=== PATIENT | male | born 1955 | race Caucasian/White ===

== ENCOUNTER → 2024-07-17 | Outpatient (CLI) | payer BC, SELFPAY ==
[2024-07-17 17:07] LABS: Absolute Lymphocyte Count 1.13 X10^3/uL (0.83-4.51); Absolute Neutrophil Count 2.9 X10^3/uL (2.0-7.7); Basophil# 0.04 X10^3/uL; Basophil% 0.8 % (0-1); Eosinophil# 0.18 X10^3/uL; Eosinophils% 3.6 % (0-5); Hematocrit 43.8 % (40-54); Hemoglobin 14.7 g/dL (13.0-16.5); Lymphocyte # 1.13 X10^3/ul (0.83-4.51); Lymphocyte % 22.6 % (19-41); Mean Corp Hgb Conc 33.6 g/dL (32-36); Mean Corpuscular Hgb 32.5 pg (27.0-32.0); Mean Corpuscular Volume 96.7 fL (80-94); Mean Platelet Vol. 12.9 fl (6.2-12.0); Monocyte# 0.76 X10^3/uL; Monocyte% 15.2 % (0-10); NRBC Flagged by Analyzer 0 % (0-5); Neutrophil # 2.85 X10^3/uL (2.7-7.7); Neutrophil % 56.8 % (47-70); Platelet Count 138 K/mm3 (150-450); RBC Distribution Width CV 12.5 % (11.6-14.6); Red Blood Count 4.53 M/mm3 (4.6-6.2)
[2024-07-17 18:36] LABS: CPK Total, Creatine Kinase 98 U/L (24-195); Hepatitis C Antibody Nonreactive (Nonreactive); PSA,Total - Annual Screen 1.91 ng/mL (0.02-4.00); Troponin T High Sensitivity 11 ng/L (<=22); Vitamin D,25 Hydroxy 29.3 ng/mL (30-100)
[2024-07-17 18:49] LABS: ALB/GLOB Ratio 1.5 RATIO (0.9-2.4); AST(SGOT) 26 U/L (<=37); Alanine Aminotransfer ALT/SGPT 18 U/L (<=46); Alkaline Phosphatase 73 U/L (40-129); Anion Gap 15 (5-15); BUN 23 mg/dL (4-19); BUN/Creat Ratio 17.2 RATIO (10-20); Calcium,Total 8.7 mg/dL (7.6-11.0); Chloride 105 mmol/L (98-108); Creatinine, Serum 1.34 mg/dL (0.70-1.20); EST Glomerular Filtration Rate 58 (>60); Globulin 2.6 g/dL (2.2-4.2); Glucose 98 mg/dL (70-99); Potassium 4.2 mmol/L (3.3-5.1); Protein, Total 6.6 g/dL (5.9-8.4); Sodium Level 140 mmol/L (133-145); Total Bilirubin 0.28 mg/dL (0.00-1.30)
[2024-07-19 04:07] LABS: Myoglobin, Serum 46 ng/mL (28-72)
== END | disposition home or self-care (01) ==
LOC: LAB 15:30
PROVIDERS: PCP Family Medicine Geriatric Medicine; Referring Provider Family Medicine Geriatric Medicine; Visit Provider Family Medicine Geriatric Medicine
DX: E78.5 Hyperlipidemia, unspecified (principal); Z13.89 Encounter for screening for other disorder; R07.9 Chest pain, unspecified; Z12.5 Encounter for screening for malignant neoplasm of prostate; E55.9 Vitamin D deficiency, unspecified
CPT/HCPCS: 36415; 80053; 82306; 82550; 83874; 84153; 84443; 84484; 85025; 86803; G0103

== ENCOUNTER → 2024-07-31 | Outpatient (CLI) | payer BC, SELFPAY ==
--- NOTE | 2024-07-31 08:51 | AAAS_ITS ---
Reason For Study Reason For Study: SCREENING Aorta Measurements Aorta Doppler Measurements Proximal aorta measures2.22 x 2.22cm. in cross-sectional Peak systolic flow velocities within the proximal aorta axis. measure 86.7 cm/sec. Proximal aorta measures2.22cm. in longitudinal axis. Peak systolic flow velocities within the mid aorta measure Mid aorta measures2.4 x 2.4cm. in cross-sectional axis. 49.3 cm/sec. Mid aorta measures2.4cm. in longitudinal axis. Peak systolic flow velocities within the distal aorta Distal aorta measures2.43 x 2.05cm. in cross-sectional axis.measure 48.2 cm/sec. Distal aorta measures2.46cm. in longitudinal axis. Left Iliac Artery Left iliac artery measures 1.05 x 1.05 cm. in the cross-sectional axis. Left iliac artery measures 1.09 cm. in the longitudinal axis. Peak systolic velocity in the left iliac artery measures 69.9 cm/sec. Right Iliac Artery Right iliac artery measures 1.11 x 1.02 cm. in the cross-sectional axis. Right iliac artery measures 1.08 cm. in the longitudinal axis. Peak systolic velocity in the right iliac artery measures 73.6 cm/sec. VL/AAA Screening Interpretation Summary The dimensions of the intra-abdominal aorta are normal, without evidence of ane urysmal dilatation. The iliac arteries are also normal in caliber bilaterally. The intra-abdominal aorta and iliac art eries appear patent, demonstrating normal, pulsatile arterial flow and normal peak systolic velocities. Ordering Physician: Jermaine Orellana Chi Referring Physician: Jermaine Orellana Chi Performed By: Jessica Mullen, LIV, RVT
--- OUTSIDE RECORDS SUMMARY | 2024-07-31 09:25 | XMS RPT_ITS | CCD ---
Author Organization [facility] Care Team Providers Care Rooter Operator Name Role Phone Unavailable Unavailable Unavailable FLORINDA THORNTON Unavailable Unavailable MARLY MORRIS Unavailable Unavaila lester Orellana MD, Dr. Jermaine Vázquez Primary Care Provider [phone] Esteban CARCMAO, Dr. Jermaine Vázquez Attending Provider Esteban CARCAMO, Dr. Jermaine Vázquez Referring Provider Esteban, Jermaine Chi Primary Care Unavailable Esteban, Jermaine Chi Referring Unavailable Esteban, Jermaine Chi Attending Unavailable Esteban, Jermaine Chi Attending Unavailable Esteban, Jermaine Chi Primary Care Unavailable Esteban, Jermaine Chi Referring Unavailable Esteban, Jermaine Chi Attending Unavailable Esteban, Jermaine Chi Primary Care Unavailable Esteban, Jermaine Chi Referring Unavailable Problems Problem Classification Problem Date Documented Da te Episodic/Chronic Disorders of lipid metabolism (1 source) Hyperlipidemia, unspecified; Translations: [Hyperlipidemia, unspecified] Onset: 07-24-2024 Chronic Nonspecific chest pain (1 source) Chest pain, unspecified; Translations: [Chest pain, unspecified] Onset: 07-18-2024 Episodic Other lower respiratory disease (1 source) Shortness of breath; Translations: [Shortness of breath] Onset: 07-18-2024 Episodic Unclassified (1 source) Abdominal aortic aneurysm, without rupture, unspecified; Translations: [Abdominal aortic aneurysm, without rupture, unspecified] Onset: 07-22-2024 Results Test Name Value Interpretation Reference Range Facil ity Myoglobin, Serumon 5 Myoglobin, Ser 46 ng/mL Normal 28-72 [facility] Comment on above: Result Comment: Perf ormed at: CB - [facility] [address] [id number] Pathology Technologist: Dave Jain PhD, Phone: [phone] Performed By: #### L 501.3620, L500.4050, L506.1001, L3600.5100, L3890.6301, L501.9520, L501.9910, L100.0100, L501.4021 #### [facility] [address] [place], [address] Absolute lymphocyte countOrd ered By: Jermaine Orellana on 07-17-2024 Lymphocytes Auto (Unsp spec) [#/Vol] 1.13 10*3/uL 0.83-4.51 [facility] Absolute neutrophil countOrd ered By: Jermaine Esteban on 07-17-2024 Neutrophils (Bld) [#/Vol] 2.9 10*3/uL 2.0-7.7 [facility] Anion gap in Serum or Plasma Ordered By: Jermaine Orellana on 07-17-2024 Anion gap [Moles/Vol] 15 mmol/L 5-[address] [facility] Automated lymphocyte count a s percentage of total leukocytesOrdered By: Jermaine Orellana on 07-17-2024 Lymphocytes/100 WBC Auto (Unsp spec) 22.6 % 19-41 [facility] BUN/creatinine [facility]Ordered By: [facility]24 Urea nitrogen/Creatinine [Mass ratio] 17.2 mg/mg 10-20 [facility] Basophil percentageOrdered B y: Jermaine Orellana on 07-17-2024 Basophils/100 WBC (Bld) 0.8 % 0-1 [facility] Bilirubin, totalOrdered By: Jermaine Orellana on 07-17-2024 Bilirubin [Mass/Vol] 0.28 mg/dL 0.00-1.30 [facility] CBC W/Diff, Automatedon Absolute Lymph 1.13 X10 3/uL Normal 0.83-4.51 [facility] Comment on above: Performed By: #### L 501.3620, L500.4050, L506.1001, L3600.5100, L3890.6301, L501.9520, L501.9910, L100.0100, L501.4021 #### [facility] [address] [place], [address] Absolute Neut 2.9 X10 3/uL Normal 2.0-7.7 [facility] Comment on above: Performed By: #### L 501.3620, L500.4050, L506.1001, L3600.5100, L3890.6301, L501.9520, L501.9910, L100.0100, L501.4021 #### [facility] [address] [place], [address] Basophils/100 WBC (Bld) 0.8 % Normal 0-1 [facility] Comment on above: Performed By: #### L 501.3620, L500.4050, L506.1001, L3600.5100, L3890.6301, L501.9520, L501.9910, L100.0100, L501.4021 #### [facility] [address] [place], [address] Eosinophils/100 WBC (Bld) 3.6 % Normal 0-5 [facility] Comment on above: Performed By: #### L 501.3620, L500.4050, L506.1001, L3600.5100, L3890.6301, L501.9520, L501.9910, L100.0100, L501.4021 #### [facility] [address] [place], [address] Erythrocyte distribution width (RBC) [Ratio] 12.5 % Normal 11.6-14.6 [facility] Comment on above: Performed By: #### L 501.3620, L500.4050, L506.1001, L3600.5100, L3890.6301, L501.9520, L501.9910, L100.0100, L501.4021 #### [facility] [address] [place], [address] Hematocrit (Bld) [Volume fraction] 43.8 % Normal 40-54 [facility] Comment on above: Performed By: #### L 501.3620, L500.4050, L506.1001, L3600.5100, L3890.6301, L501.9520, L501.9910, L100.0100, L501.4021 #### [facility] [address] [place], [address] Hemoglobin (Bld) [Mass/Vol] 14.7 g/dL Normal 13.0-16.5 [facility] Comment on above: Performed By: #### L 501.3620, L500.4050, L506.1001, L3600.5100, L3890.6301, L501.9520, L501.9910, L100.0100, L501.4021 #### [facility] [address] [place], [address] IG% 1.000 High 0.0-0.9 [facility] Comment on above: Result Comment: IG% - Immature Granulocytes (promyelocytes, myelocytes and metamyelocytes) > 1% indicates that a LEFT SHIFT is Present. Performed By: #### L 501.3620, L500.4050, L506.1001, L3600.5100, L3890.6301, L501.9520, L501.9910, L100.0100, L501.4021 #### [facility] [address] [place], [address] Lymphocytes/100 WBC (Bld) 22.6 % Normal 19-41 [facility] Comment on above: Performed By: #### L 501.3620, L500.4050, L506.1001, L3600.5100, L3890.6301, L501.9520, L501.9910, L100.0100, L501.4021 #### [facility] [address] [place], [address] MCH (RBC) [Entitic mass] 32.5 pg High 27.0-32.0 [facility] Comment on above: Performed By: #### L 501.3620, L500.4050, L506.1001, L3600.5100, L3890.6301, L501.9520, L501.9910, L100.0100, L501.4021 #### [facility] [address] [place], [address] MCHC (RBC) [Mass/Vol] 33.6 g/dL Normal 32-[address] [facility] Comment on above: Performed By: #### L 501.3620, L500.4050, L506.1001, L3600.5100, L3890.6301, L501.9520, L501.9910, L100.0100, L501.4021 #### [facility] [address] [place], [address] MCV (RBC) [Entitic vol] 96.7 fL High 80-94 [facility] Comment on above: Performed By: #### L 501.3620, L500.4050, L506.1001, L3600.5100, L3890.6301, L501.9520, L501.9910, L100.0100, L501.4021 #### [facility] [address] [place], [address] Monocytes/100 WBC (Bld) 15.2 % High 0-10 [facility] Comment on above: Performed By: #### L 501.3620, L500.4050, L506.1001, L3600.5100, L3890.6301, L501.9520, L501.9910, L100.0100, L501.4021 #### [facility] [address] [place], [address] Neutrophils/100 WBC (Bld) 56.8 % Normal 47-70 [facility] Comment on above: Performed By: #### L 501.3620, L500.4050, L506.1001, L3600.5100, L3890.6301, L501.9520, L501.9910, L100.0100, L501.4021 #### [facility] [address] [place], [address] Nucleated RBC (Bld) [#/Vol] 0 10*3/uL Normal 0-5 [facility] Comment on above: Performed By: #### L 501.3620, L500.4050, L506.1001, L3600.5100, L3890.6301, L501.9520, L501.9910, L100.0100, L501.4021 #### [facility] [address] [facility] [place], [address] Platelet mean volume (Bld) [Entitic vol] 12.9 fL High 6.2-12.0 [facility] Comment on above: Performed By: #### L 501.3620, L500.4050, L506.1001, L3600.5100, L3890.6301, L501.9520, L501.9910, L100.0100, L501.4021 #### [facility] [address] [facility] [place], [address] Platelets (Bld) [#/Vol] 138 10*3/uL Low 150-450 [facility] Comment on above: Performed By: #### L 501.3620, L500.4050, L506.1001, L3600.5100, L3890.6301, L501.9520, L501.9910, L100.0100, L501.4021 #### [facility] [address] [place], [address] RBC (Bld) [#/Vol] 4.53 10*6/uL Low 4.6-6.2 [facility] Comment on above: Performed By: #### L 501.3620, L500.4050, L506.1001, L3600.5100, L3890.6301, L501.9520, L501.9910, L100.0100, L501.4021 #### [facility] [address] [place], [address] RDW SD 45.0 fl High 35.1-43.9 [facility] Comment on above: Performed By: #### L 501.3620, L500.4050, L506.1001, L3600.5100, L3890.6301, L501.9520, L501.9910, L100.0100, L501.4021 #### [facility] [address] [facility] [place], [place], [id number] WBC (Bld) [#/Vol] 5.0 10*3/uL Normal 4.4-11.0 [facility] Comment on above: Performed By: #### L 501.3620, L500.4050, L506.1001, L3600.5100, L3890.6301, L501.9520, L501.9910, L100.0100, L501.4021 #### [facility] [address] [facility] [place], [place], [id number] CPK Total, Creatine Kinaseon 07-17-2024 CPK TOTAL 98 U/L Normal 24-195 [facility] Comment on above: Performed By: #### L 501.3620, L500.4050, L506.1001, L3600.5100, L3890.6301, L501.9520, L501.9910, L100.0100, L501.4021 #### [facility] [address] [facility] [place], [place], [id number] Carbon dioxide, total [Moles /volume] in Central venous bloodOrdered By: Jermaine Orellana on 07-17-2024 CO2 [Moles/Vol] 20.0 mmol/L Low 21.0-32.0 [facility] Chloride assayOrdered By: Daniel Orellana on 07-17-2024 Chloride [Moles/Vol] 105 mmol/L 98-108 [facility] Comprehensive Metabolic Prof ilon 07-17-2024 Albumin [Mass/Vol] 4.0 g/dL Normal 3.4-4.8 [facility] Comment on above: Performed By: #### L 501.3620, L500.4050, L506.1001, L3600.5100, L3890.6301, L501.9520, L501.9910, L100.0100, L501.4021 #### [facility] [address] [place], [address] Albumin/Globulin [Mass ratio] 1.5 {ratio} Normal 0.9-2.4 [facility] Comment on above: Performed By: #### L 501.3620, L500.4050, L506.1001, L3600.5100, L3890.6301, L501.9520, L501.9910, L100.0100, L501.4021 #### [facility] [address] [place], [address] ALK PHOS 73 U/L Normal 40-129 [facility] Comment on above: Performed By: #### L 501.3620, L500.4050, L506.1001, L3600.5100, L3890.6301, L501.9520, L501.9910, L100.0100, L501.4021 #### [facility] [address] [place], [address] ALT [Catalytic activity/Vol] 18 U/L Normal <=46 [facility] Comment on above: Performed By: #### L 501.3620, L500.4050, L506.1001, L3600.5100, L3890.6301, L501.9520, L501.9910, L100.0100, L501.4021 #### [facility] [address] [place], [address] AST [Catalytic activity/Vol] 26 U/L Normal <=37 [facility] Comment on above: Result Comment: Hemo lysis present, Results??could be affected. ?? Performed By: #### L 501.3620, L500.4050, L506.1001, L3600.5100, L3890.6301, L501.9520, L501.9910, L100.0100, L501.4021 #### [facility] [address] [place], [address] Bilirubin [Mass/Vol] 0.28 mg/dL Normal 0.00-1.30 [facility] Comment on above: Performed By: #### L 501.3620, L500.4050, L506.1001, L3600.5100, L3890.6301, L501.9520, L501.9910, L100.0100, L501.4021 #### [facility] [address] [place], [address] BUN/CRE 17.2 RATIO Normal 10-20 [facility] Comment on above: Performed By: #### L 501.3620, L500.4050, L506.1001, L3600.5100, L3890.6301, L501.9520, L501.9910, L100.0100, L501.4021 #### [facility] [address] [place], [address] Calcium [Mass/Vol] 8.7 mg/dL Normal 7.6-11.0 [facility] Comment on above: Performed By: #### L 501.3620, L500.4050, L506.1001, L3600.5100, L3890.6301, L501.9520, L501.9910, L100.0100, L501.4021 #### [facility] [address] [place], [address] Chloride [Moles/Vol] 105 mmol/L Normal 98-108 [facility] Comment on above: Performed By: #### L 501.3620, L500.4050, L506.1001, L3600.5100, L3890.6301, L501.9520, L501.9910, L100.0100, L501.4021 #### [facility] [address] [place], [place], [phone] (207) CO2 [Moles/Vol] 20.0 mmol/L Low 21.0-32.0 [facility] Comment on above: Performed By: #### L 501.3620, L500.4050, L506.1001, L3600.5100, L3890.6301, L501.9520, L501.9910, L100.0100, L501.4021 #### [facility] [address] [place], [place], [phone] ([address]) Creatinine [Mass/Vol] 1.34 mg/dL High 0.70-1.[address] [facility] Comment on above: Performed By: #### L 501.3620, L500.4050, L506.1001, L3600.5100, L3890.6301, L501.9520, L501.9910, L100.0100, L501.4021 #### [facility] [address] [place], [place], [id number] GAP 15 Normal 5-15 [facility] Comment on above: Performed By: #### L 501.3620, L500.4050, L506.1001, L3600.5100, L3890.6301, L501.9520, L501.9910, L100.0100, L501.4021 #### [facility] [address] [place], [place], [phone] (827) GFR/1.73 sq M.predicted among non-blacks MDRD (S/P/Bld) [Vol rate/Area] 58 mL/min/{1.73_m2} Low >60 [facility] Comment on above: Result Comment: mL/m in/1.73m2 CKD-EPI Creatinine Equation (2020) Performed By: #### L 501.3620, L500.4050, L506.1001, L3600.5100, L3890.6301, L501.9520, L501.9910, L100.0100, L501.4021 #### [facility] [address] [place], [address] Globulin (S) [Mass/Vol] 2.6 g/dL Normal 2.2-4.2 [facility] Comment on above: Performed By: #### L 501.3620, L500.4050, L506.1001, L3600.5100, L3890.6301, L501.9520, L501.9910, L100.0100, L501.4021 #### [facility] [address] [place], [address] Glucose [Mass/Vol] 98 mg/dL Normal 70-99 [facility] Comment on above: Performed By: #### L 501.3620, L500.4050, L506.1001, L3600.5100, L3890.6301, L501.9520, L501.9910, L100.0100, L501.4021 #### [facility] [address] [place], [address] Potassium [Moles/Vol] 4.2 mmol/L Normal 3.3-5.[address] [facility] Comment on above: Result Comment: Hemo lysis present, Results??could be affected. ?? Performed By: #### L 501.3620, L500.4050, L506.1001, L3600.5100, L3890.6301, L501.9520, L501.9910, L100.0100, L501.4021 #### [facility] [address] [place], [address] Sodium [Moles/Vol] 140 mmol/L Normal 133-145 [facility] Comment on above: Performed By: #### L 501.3620, L500.4050, L506.1001, L3600.5100, L3890.6301, L501.9520, L501.9910, L100.0100, L501.4021 #### [facility] [address] [place], [address] T PROT 6.6 g/dL Normal 5.9-8.4 [facility] Comment on above: Performed By: #### L 501.3620, L500.4050, L506.1001, L3600.5100, L3890.6301, L501.9520, L501.9910, L100.0100, L501.4021 #### [facility] [address] [place], [place], [phone] Urea nitrogen [Mass/Vol] 23 mg/dL High 4-19 [facility] Comment on above: Performed By: #### L 501.3620, L500.4050, L506.1001, L3600.5100, L3890.6301, L501.9520, L501.9910, L100.0100, L501.4021 #### [facility] [address] [facility] [place], [place], [id number] Eosinophil percentageOrdered By: Jermaine Orellana on 07-17-2024 Eosinophils/100 WBC (Bld) 3.6 % 0-5 [facility] Erythrocyte distribution wid th ratioOrdered By: [facility] on 07-17-2024 Erythrocyte distribution width (RBC) [Ratio] 12.5 % 11.6-14.6 [facility] Erythrocyte distribution wid th standard deviationOrdered By: Jermaine Orellana on 07-17-2024 Erythrocyte distribution width (RBC) [Ratio] 45.0 fl High 35.1-43.9 [facility] Glomerular filtration rate ( GFR) estimation/1.73 sq m using serum, plasma, or whole bOrdered By: Jermaine Orellana on 07-17-2024 GFR/1.73 sq M.predicted among non-blacks MDRD (S/P/Bld) [Vol rate/Area] 58 mL/min/{1.73_m2} Low >60 [facility] Comment on above: mL/min/1.73m2 CKD-EP I Creatinine Equation (2020) Hematocrit Auto (Bld) [Volum e fraction]Ordered By: Jermaine Orellana on 07-17-2024 Hematocrit (Bld) [Volume fraction] 43.8 % 40-54 [facility] Hemoglobin measurementOrdere d By: Jermaine Orellana on 07-17-2024 Hemoglobin (Bld) [Mass/Vol] 14.7 g/dL 13.0-16.5 [facility] Hepatitis C Antibodyon 07-17 Hepatitis C Ab Non-Reactive Normal Nonreactive [facility] Comment on above: Result Comment: Reac tive: Presumptive evidence of antibodies to HCV. Follow CDC recommendations for supplemental testing. Non-Reactive: Antibodies to HCV were not detected; does not exclude the possibility of exposure to HCV Reactive Results are presumptive evidence of antibodies to HCV. Follow CDC recommendations for supplemental testing. Order confirmation testing: HCV Quant by PCR testing - HCVPCR lc#[id number] Non Reactive: < 0.8 Equivocal: >/= 0.8 to < 1.0 Reactive: >/= 1.0 The CDC requires that a reactive/equivocal HCV antibody result be sent out for confirmation. HCV Quant by PCR testing. Performed By: #### L 501.3620, L500.4050, L506.1001, L3600.5100, L3890.6301, L501.9520, L501.9910, L100.0100, L501.4021 #### [facility] [address] [place], [address] Immature granulocytes/100 WB C Auto (Bld)Ordered By: Jermaine Orellana on 07-17-2024 Immature granulocytes/100 WBC (Bld) 1.000 % High 0.0-0.9 [facility] Comment on above: IG% - Immature Granu locytes (promyelocytes, myelocytes and metamyelocytes) > 1% indicates that a LEFT SHIFT is Present. L501.4021on 07-17-2024 Trop T High Sen 11 ng/L Normal <=22 [facility] Comment on above: Performed By: #### L 501.3620, L500.4050, L506.1001, L3600.5100, L3890.6301, L501.9520, L501.9910, L100.0100, L501.4021 #### [facility] [address] [place], [address] Laboratory - Chemistry and C hemistry - challengeOrdered By: Jermaine Orellana on 07-17-2024 AST [Catalytic activity/Vol] 26 U/L <38 [facility] Comment on above: Hemolysis present, R esults could be affected. MCV (mean corpuscular volume ) determinationOrdered By: Jermaine Orellana on 07-17-2024 MCV (RBC) [Entitic vol] 96.7 fL High 80-94 [facility] Mean corpuscular hemoglobin (MCH) determinationOrdered By: Jermaine Orellana on 07-17-2024 MCH (RBC) [Entitic mass] 32.5 pg High 27.0-32.0 [facility] Mean corpuscular hemoglobin concentration (MCHC) determinationOrdered By: Jermaine Orellana 07-17-2024 MCHC (RBC) [Mass/Vol] 33.6 g/dL 32-[address] [facility] Mean platelet volume determi nationOrdered By: Jermaine Orellana on 07-17-2024 Platelet mean volume (Bld) [Entitic vol] 12.9 fL High 6.2-12.0 [facility] Monocyte percentageOrdered B y: Jermaine Orellana on 07-17-2024 Monocytes/100 WBC (Bld) 15.2 % High 0-10 [facility] Neutrophil percentageOrdered By: Jermaine Orellana on 07-17-2024 Neutrophils/100 WBC (Bld) 56.8 % 47-70 [facility] Nucleated red blood cell per centageOrdered By: Jermaine Orellana on 07-17-2024 Nucleated RBC/100 WBC (Bld) [Ratio] 0 % 0-5 [facility] PSA,Total - Annual Screenon 07-17-2024 PSA,TOT SCREEN 1.91 ng/mL Normal 0.02-4.00 [facility] Comment on above: Result Comment: This test was performed using the [employer] tPSA method. Measured values of a patient??sample can vary depending on the testing procedure used. PSA values determined on patient samples by different testing procedures cannot be used interchangeably. If there is a change in PSA assays while monitoring therapy, sequential testing should be performed to confirm baseline values. Performed By: #### L 501.3620, L500.4050, L506.1001, L3600.5100, L3890.6301, L501.9520, L501.9910, L100.0100, L501.4021 #### [facility] [address] [place], [place], [phone] Platelet countOrdered By: Daniel Orellana on 07-17-2024 Platelets (Bld) [#/Vol] 138 10*3/uL Low 150-450 [facility] Potassium measurement (mass/ volume)Ordered By: Jermaine Orellana on 07-17-2024 Potassium (Unsp spec) [Mass/Vol] 4.2 mmol/L 3.3-5.1 [facility] Comment on above: Hemolysis present, R esults could be affected. RBC Auto (Bld) [#/Vol]Ordere d By: Jermaine Orellana on 07-17-2024 RBC (Bld) [#/Vol] 4.53 10*6/uL Low 4.6-6.2 [facility] Serum creatinine measurement (mass/volume)Ordered By: Jermaine Orellana on 07-17-2024 Creatinine [Mass/Vol] 1.34 mg/dL High 0.70-1.[address] [facility] Serum globulin measurementOr dered By: Jermaine Orellana on 07-17-2024 Globulin (S) [Mass/Vol] 2.6 g/dL 2.2-4.2 [facility] Serum glucose measurement (m ass/volume)Ordered By: Jermaine Orellana on 07-17-2024 Glucose [Mass/Vol] 98 mg/dL 70-99 [facility] Serum myoglobin measurementO rdered By: Jermaine Orellana on 07-17-2024 Myoglobin [Mass/Vol] 46 ng/mL 28-72 [facility] Comment on above: Performed at: [address] [id number] Director: Dave Jain PhD, Phone: [phone] Serum or plasma alanine cueto otransferase (ALT) measurementOrdered By: Jermaine Orellana on 07-17-2024 ALT [Catalytic activity/Vol] 18 U/L <47 [facility] Serum or plasma albumin sekou urement (mass/volume)Ordered By: Jermaine Orellana on 07-17-2024 Albumin [Mass/Vol] 4.0 g/dL 3.4-4.8 [facility] Serum or plasma albumin/glob ulin mass ratioOrdered By: Jermaine Orellana on 07-17-2024 Albumin/Globulin [Mass ratio] 1.5 {ratio} 0.9-2.4 [facility] Serum or plasma alkaline dave sphatase measurementOrdered By: Jermaine Orellana on 07-17-2024 ALP [Catalytic activity/Vol] 73 U/L 40-129 [facility] Serum or plasma calcium sekou urement (mass/volume)Ordered By: Jermaine Orellana on 07-17-2024 Calcium [Mass/Vol] 8.7 mg/dL 7.6-11.0 [facility] Serum or plasma creatine kin ase activityOrdered By: Jermaine Orellana on 07-17-2024 CK [Catalytic activity/Vol] 98 U/L 24-195 [facility] Serum or plasma urea nitroge n measurement (mass/volume)Ordered By: Jermaine Orellana on 07-17-2024 Urea nitrogen [Mass/Vol] 23 mg/dL High 4-19 [facility] Sodium levelOrdered By: Jermaine Orellana on 07-17-2024 Sodium [Moles/Vol] 140 mmol/L 133-145 [facility] TSH DL <= 0.005 mIU/L QnOrde red By: Jermaine Orellana on 07-17-2024 TSH Qn 2.750 uIU/mL 0.300-4.200 [facility] Thyroid Stim Hormone (TSH)on 07-17-2024 TSH 2.750 uIU/mL Normal 0.300-4.200 [facility] Comment on above: Performed By: #### L 501.3620, L500.4050, L506.1001, L3600.5100, L3890.6301, L501.9520, L501.9910, L100.0100, L501.4021 #### [facility] [address] [place], [place], [id number] Total proteinOrdered By: Jermaine Orellana on 07-17-2024 Protein [Mass/Vol] 6.6 g/dL 5.9-8.4 [facility] Troponin T.cardiac [Mass/vol ume] in Serum or Plasma by High sensitivity methodOrdered By: Jermaine Orellana on 07-17-2024 Troponin T.cardiac High sensitivity method [Mass/Vol] 11 ng/L <22 [facility] Vitamin D,25 Hydroxyon 07-17 Vitamin D 25-OH 29.3 ng/mL Low 30-100 [facility] Comment on above: Result Comment: [place] min D Status Deficiency: <20 ng/mL (50nmol/L) Insufficiency: 20-30 ng/mL (50-75 nmol/L) Sufficiency: 30-100 ng/mL (75-250 nmol/L) Toxicity: >100 ng/mL (>250 nmol/L) Performed By: #### L 501.3620, L500.4050, L506.1001, L3600.5100, L3890.6301, L501.9520, L501.9910, L100.0100, L501.4021 #### [facility] [address] [place], [place], [address] White blood cell (WBC) count Ordered By: Jermaine Orellana on 07-17-2024 WBC (Bld) [#/Vol] 5.0 10*3/uL 4.4-11.0 [facility] Encounters Encounter Date Encounter Type Care Provider Facility Start: 08-22-2024 ambulatory Jermaine [facility] Facility:[facility] Start: 07-31-2024 ambulatory [facility] Facility:[facility] Start: 07-17-2024 End: 07-17-[address] Jermaine Orellana MD Work Phone: [facility] Work Phone: Start: 07-17-2024 End: 07-17-[address] Jermaine Orellana MD -Laboratory Work Phone: Start: 07-17-2024 End: 07-17-2024 ambulatory [facility] Facility:[facility] Start: 02-05-2018 Patient encounter procedure MARLY MORRIS [facility] Start: 01-31-2018 End: 01-31-2018 Patient encounter procedure Florinda Thornton [facility] Physicians Comment on above: medical records Procedures Date Procedure Procedure Detail Performing Clinician Start: 07-17-[address]24 [address] C antibody measurement Dr. Jermaine Orellana MD Work Phone: Comment on above: Reactive: Presumptiv e evidence of antibodies to HCV. Follow CDC recommendations for supplemental testing.Non-Reactive: Antibodies to HCV were not detected; does not exclude the possibility of exposure to HCVReactive Results are presumptive evidence of antibodies to HCV. Follow CDC recommendations for supplemental testing.Order confirmation testing: HCV Quant by PCR testing - HCVPCR lc#[id number] Non Reactive: < 0.8 Equivocal: >/= 0.8 to < 1.0 Reactive: >/= 1.0The CDC requires that a reactive/equivocal HCV antibody result be sent out for confirmation. HCV Quant by PCR testing. Start: 07-17-2024 Prostate specific an tigen measurement Dr. Jermaine Orellana MD Work Phone: Comment on above: This test was perfor med using the [facility] tPSA method. Measured values of a patient sample can vary depending on the testing procedure used. PSA values determined on patient samples by different testing procedures cannot be used interchangeably. If there is a change in PSA assays while monitoring therapy, sequential testing should be performed to confirm baseline values. Start: 07-17-2024 Vitamin D, 25-hydrox y measurement Dr. Jermaine Orellana MD Work Phone: Comment on above: Vitamin D StatusDefi ciency: <20 ng/mL (50nmol/L)Insufficiency: 20-30 ng/mL (50-75 nmol/L)Sufficiency: 30-100 ng/mL (75-250 nmol/L)Toxicity: >100 ng/mL (>250 nmol/L) Payers Date Payer Category Payer Self-pay 2024 Unknown [id number] Unknown [facility] [id number] Unknown [id number] Unknown [id number] Unknown [id number] Social History Date Type Detail Facility Tobacco smoking stat [facility] Unknown if [facility] Work Phone: Start: 1955 Sex Assigned At Male [facility] Evaluation note Note Date & Type Note Facility Evaluation note No assessment information availa ble [facility] Work Phone: Reason for referral (narrative) Note Date & Type Note Facility Reason for referral (narrative) No reason for referral information available [facility] Work Phone: History of Present Illness * Florinda Thornton RN - 01/31/2018 11:21 AM EST Faxed and scan records from [facility] on 01/30 to [facility] in this encounter Summary Purpose Family History No Family History Records FoundNo Family History Records Found Advance Directives No Advanced Directives Records FoundNo Advanced Directives Records Found Additional Source Comments Reason for Visit (unrecogniz ed section and content) Reason Comments medical records (unrecognized sect ion and content) No Status Records FoundNo Status Records Found INFORMATION SOURCE (unrecogn ized section and content) DATE CREATED AUTHOR 02/07/2018 [facility] DATE CREATED AUTHOR AUTHOR'S ORGANIZ ATION 07/27/2024 [facility] Care Teams (unrecognized sec tion and content) Team Status: Active Member Role Status Dates Dr. Jermaine Orellana MD Primary Care Provider Active Team Status: Inactive Member Role Status Dates Dr. Jermaine Orellana MD Primary Care Provider Active Start: July 17, 2024 End: July 17, 2024 Dr. Jermaine Orellana MD Attending Provider Active Start: July 17, 2024 End: July 17, 2024 Dr. Jermaine Orellana MD Referring Provider Active Start: July 17, 2024 End: July 17, 2024 Goals (unrecognized section and content) Goals may be documented in a n alternate section FOR RECORDS PERTAINING TO PATIENTS WHO ARE OR HAVE BEEN ENROLLED IN A CHEMICAL DEPENDENCY/SUBSTANCEABUSE PROGRAM, SOME INFORMATION MAY BE OMITTED. This clinical summary was aggregated from multiple sources. Caution should be exercised in using it in the provision of clinical care. This summary normalizes information from multiple sources, and as a consequence, information in this document may materially change the coding, format and clinical context of patient data. In addition, data may be omitted in some cases. CLINICAL DECISIONS SHOULD BE BASED ON THE PRIMARY CLINICAL RECORDS. [employer] provides no warranty or guarantee of the accuracy or completeness of information in this document.
== END | disposition home or self-care (01) ==
LOC: CVS 08:50
PROVIDERS: PCP Family Medicine Geriatric Medicine; Referring Provider Family Medicine Geriatric Medicine; Visit Provider Family Medicine Geriatric Medicine
DX: I71.40 Abdominal aortic aneurysm, without rupture, unspecified (principal); R06.02 Shortness of breath; R07.9 Chest pain, unspecified
CPT/HCPCS: 76706

== ENCOUNTER → 2024-08-22 | Outpatient (CLI) | payer BC, SELFPAY ==
--- NOTE | 2024-08-22 06:18 | ECHOD_ITS ---
Reason For Study Reason For Study: SOB, Chest Pain Procedure This was a 2D Doppler, Color Flow transthoracic echocardiogram. Myocardial strain analysis was performed in this exam to aid in the assessment of cardiac function. Exam performed in department. Left Ventricle Normal LV size. Moderate concentric left ventricular hypertrophy. The global longitudinal strain = -14.5% (abnormal). Stage 1 diastolic dysfunction. No regional wall motion abnormalities noted. Right Ventricle Normal RV size. Normal systolic function. Atria Normal left atrium. Normal right atrium. Mitral Valve Normal mitral valve. Tricuspid Valve Normal tricuspid valve. Mild tricuspid valve insufficiency. Aortic Valve Trisinus/trileaflet aortic valve. Pulmonic Valve Normal pulmonic valve. Great Vessels Mildly dilated aortic root. The pulmonary artery is normal size. Normal inferior vena cava. Pericardium/Pleural No pericardial effusion. MMode/2D Measurements & Calculations LVIDd: 5.3 cm IVSd: 1.4 cm Ao root diam: 4.0 cm LVIDs: 3.8 cm LVPWd: 1.3 cm RVDd: 3.4 cm FS: 27.6 % LAV(MOD-bp): 49.0 ml LVAd ap4: 31.4 cm2 SV(MOD-sp4): 55.7 ml LAV(MOD-bp) Indexed: 23.7 ml/m2 LVLd ap4: 8.0 cm SI(MOD-sp4): 27.0 ml/m2 LAV(MOD-sp2): 46.7 ml EDV(MOD-sp4): 100.8 ml LAV(MOD-sp4): 39.4 ml EDV(sp4-el): 104.8 ml LVAs ap4: 19.5 cm2 LVLs ap4: 7.0 cm ESV(MOD-sp4): 45.1 ml ESV(sp4-el): 46.0 ml EF(MOD-sp4): 55.2 % EF(sp4-el): 56.1 % SV(sp4-el): 58.8 ml Ao sinus diam: 4.[address] Junction: 3.3 cm LA dimension(2D): 3.9 cm LA A4 area: 14.7 cm2 RA A4 area: 13.7 cm2 Time Measurements MV dec time: 0.22 sec Doppler Measurements & Calculations MV E max lonny: 47.0 cm/sec Lat Peak E' Lonny: 5.5 cm/sec Med Peak E' Lonny: 5.2 cm/sec MV A max lonny: 57.7 cm/sec E/E' lat: 8.6 E/E' med: 9.1 MV E/A: 0.82 MV V2 max: 72.4 cm/sec MV P1/2t max lonny: 47.3 cm/sec Ao V2 max: 114.7 cm/sec MV max P.1 mmHg MV P1/2t: 79.8 msec Ao max P.3 mmHg MV V2 mean: 35.2 cm/sec MV dec slope: 173.5 cm/sec2 Ao V2 mean: 80.5 cm/sec MV mean P.59 mmHg Ao mean P.0 mmHg MV V2 VTI: 18.9 cm MVA(P1/2t): 2.8 cm2 Ao V2 VTI: 24.3 cm AV (velocity ratio): 0.74 LV V1 max: 77.1 cm/sec PA V2 max: 84.3 cm/sec TR max lonny: 222.3 cm/sec LV V1 max P.4 mmHg TR max P.8 mmHg LV V1 mean P.3 mmHg LV V1 mean: 52.1 cm/sec LV V1 VTI: 18.1 cm ECHO/Echo Complete Interpretation Summary Normal LV size. Moderate concentric left ventricular hypertrophy. The global longitudinal strain = -14.5% (abnormal). Stage 1 diastolic dysfunction. Mildly dilated aortic root. Ordering Physician: Jermaine Orellana Chi Referring Physician: Jermaine Orellana Chi Performed By: Collins Quiñones RCS
--- OUTSIDE RECORDS SUMMARY | 2024-08-22 06:20 | XMS RPT_ITS | CCD ---
Author Organization [facility] Care Team Providers Care Record Librarian Name Role Phone Unavailable Unavailable Unavailable FLORINDA THORNTON Unavailable Unavailable MARLY MORRIS Unavailable Unavaila lester Orellana MD, Dr. Jermaine Vázquez Primary Care Provider Esteban CARCAMO, Dr. Jermaine Vázquez Attending Provider Esteban CARCAMO, Dr. Jermaine Vázquez Referring Provider [phone] Esteban, Jermaine Chi Primary Care Unavailable Esteban, [...] pain, unspecified; Translations: [Chest pain, unspecified] Onset: 08-13-2024 Episodic Other lower respiratory disease (1 source) Shortness of breath; Translations: [Shortness of breath] Onset: 08-13-2024 Episodic Unclassified (1 source) Abdominal aortic aneurysm, without rupture, unspecified; Translations: [Abdominal aortic aneurysm, without rupture, unspecified] Onset: 08-06-2024 Results Test Name Value Interpretation Reference Range Facil ity Cardiovascular ultrasound re portOrdered By: Hi Martinez on 08-01-2024 Study report [facility] Cardiovascular Services [address] [place] [address] AAA Screening 07/31/24 0858 MR#: [id number] Acct: [id number] Name: LORJANEE MODI Rep #:[id number] : 1955 69 From: Hi Martinez MD Attending Dr: Dr. Jermaine Orellana MD Status: REG CLI Ordering Dr: Jermaine Orellana MD Date: [place] [facility] Sex: M C Admitted: Reason For Study Reason For Study: SCREENING Aorta Measurements Aorta Doppler Measurements Proximal aorta measures2.22 x 2.22cm. in cross-sectional Peak systolic flow velocities within the proximal aorta axis. measure 86.7 cm/sec. Proximal aorta measures2.22cm. in longitudinal axis. Peak systolic flow velocities within the mid aorta measure Mid aorta measures2.4 x 2.4cm. in cross-sectional axis. 49.3 cm/sec. Mid aorta measures2.4cm. in longitudinal axis. Peak systolic flow velocities within the distal aorta Distal aorta measures2.43 x 2.05cm. in cross-sectional axis.measure 48.2 cm/sec. Distal aorta measures2.46cm. in longitudinal axis. Left Iliac Artery Left iliac artery measures 1.05 x 1.05 cm. in the cross-sectional axis. Left iliac artery measures 1.09 cm. in the longitudinal axis. Peak systolic velocity in the left iliac artery measures 69.9cm/sec. Right Iliac Artery Right iliac artery measures 1.11 x 1.02 cm. in the cross-sectional axis. Right iliac artery measures 1.08 cm. in the longitudinal axis. Peak systolic velocity in the right iliac artery measures 73.6 cm/sec. VL/AAA Screening Interpretation Summary The dimensions of the intra-abdominal aorta are normal, without evidence of aneurysmal dilatation. The iliac arteries are also normal in caliber bilaterally. The intra-abdominal aorta and iliac arteries appear patent, demonstrating normal, pulsatile arterial flow and normal peak systolic velocities. __ Ordering Physician: Jermaine Orellana Chi Referring Physician: Jermaine Orellana Chi Performed By: Jessica Mullen, RDCS, RVT 08/01/242253 Date _ Hi Martinez MD CC: Dr. Jermaine Orellana MD ~ Date Dictated: 07/31/24857 Date Transcribed: 08/01/242253 Tank Stave Assembler: Signed [facility] Other Phone: AAA Screeningon 07-31-2024 AAA Screening [facility] Cardiovascular Services [address] [place] [address] AAA Screening 07/31/24857 MR#: [id number] Acct: [id number] Name: JANEE HOROWITZ Rep #: [id number] : 1955 69 From: Hi Martinez MD Attending Dr: Dr. Jermaine Orellana MD Status: REG CLI Ordering Dr: Jermaine Orellana MD Date: 07/31/24 Location: [facility] [place] Sex: M C Admitted: Reason For Study Reason For Study: SCREENING Aorta Measurements Aorta Doppler Measurements Proximal aorta measures2.22 x 2.22cm. in cross-sectional Peak systolic flow velocities within the proximal aorta axis. measure 86.7 cm/sec. Proximal aorta measures2.22cm. in longitudinal axis. Peak systolic flow velocities within the mid aorta measure Mid aorta measures2.4 x 2.4cm. in cross-sectional axis. 49.3 cm/sec. Mid aorta measures2.4cm. in longitudinal axis. Peak systolic flow velocities within the distal aorta Distal aorta measures2.43 x 2.05cm. in cross-sectional axis.measure 48.2 cm/sec. Distal aorta measures2.46cm. in longitudinal axis. Left Iliac Artery Left iliac artery measures 1.05 x 1.05 cm. in the cross-sectional axis. Left iliac artery measures 1.09 cm. in the longitudinal axis. Peak systolic velocity in the left iliac artery measures 69.9 cm/sec. Right Iliac Artery Right iliac artery measures 1.11 x 1.02 cm. in the cross-sectional axis. Right iliac artery measures 1.08 cm. in the longitudinal axis. Peak systolic velocity in the right iliac artery measures 73.6 cm/sec. VL/AAA Screening Interpretation Summary The dimensions of the intra-abdominal aorta are normal, without evidence of aneurysmal dilatation. The iliac arteries are also normal in caliber bilaterally. The intra-abdominal aorta and iliac arteries appear patent, demonstrating normal, pulsatile arterial flow and normal peak systolic velocities. __ Ordering Physician: Jermaine Orellana Chi Referring Physician: Jermaine Orellana Chi Performed By: Jessica Mullen, LIV, RVT 08/01/244 Date Hi Martinez MD CC: Dr. Jermaine Orellana MD Date Dictated: 07/31/2458 Date Transcribed: 08/01/242253 Tank Stave Assembler: Signed Normal [facility] Myoglobin, Serumon 5 Myoglobin, Ser 46 ng/mL Normal 28-72 [facility] Comment on above: Result Comment: Perf ormed at: - [facility] [id number] [employer] Operator: Dave Jain PhD, Phone: [phone] Performed By: #### L 501.2880, L500.3920, L506.1001, L3600.5100, L3890.2671, L501.5620, L501.9910, L100.0100, L501.4021 #### [facility] Laboratory [address] [place], [place], [address] Absolute lymphocyte countOrd ered By: Jermaine Orellana on 07-17-2024 Lymphocytes Auto (Unsp spec) [#/Vol] 1.13 10*3/uL 0.83-4.51 [facility] Absolute neutrophil countOrd ered By: Jermaine Orellana on 07-17-2024 Neutrophils (Bld) [#/Vol] 2.9 10*3/uL 2.0-7.7 [facility] Anion gap in Serum or Plasma Ordered By: Jermaine Orellana on 07-17-2024 Anion gap [Moles/Vol] 15 mmol/L 5-15 [facility] Automated lymphocyte count a s percentage of total leukocytesOrdered By: Jermaine Esteban on 07-17-2024 Lymphocytes/100 WBC Auto (Unsp spec) 22.6 % 19- [facility] BUN/creatinine [facility]Ordered By: [facility] 07-17-[facility]24 Urea nitrogen/Creatinine [Mass ratio] 17.2 mg/mg 10- [facility] Basophil percentageOrdered B y: Jermaine Esteban on 07-17-2024 Basophils/100 WBC (Bld) 0.8 % 0-1 [facility] Bilirubin, totalOrdered By: Jermaine Esteban on 07-17-2024 Bilirubin [Mass/Vol] 0.28 mg/dL 0.00-1.30 [facility] CBC W/Diff, Automatedon Absolute Lymph 1.13 X10 3/uL Normal 0.83-4.51 [facility] Comment on above: Performed By: #### L 501.3620, L500.4050, L506.1001, L3600.5100, L3890.6301, L501.9520, L501.9910, L100.0100, L501.4021 #### [facility] [address] [place], [address] Absolute Neut 2.9 X10 3/uL Normal 2.0-7.7 [facility] Comment on above: Performed By: #### L 501.3620, L500.4050, L506.1001, L3600.5100, L3890.6301, L501.9520, L501.9910, L100.0100, L501.4021 #### [facility] [address] [place], [address] Basophils/100 WBC (Bld) 0.8 % Normal 0-1 [facility] Comment on above: Performed By: #### L 501.3620, L500.4050, L506.1001, L3600.5100, L3890.6301, L501.9520, L501.9910, L100.0100, L501.4021 #### [facility] [address] [place], [address] Eosinophils/100 WBC (Bld) 3.6 % Normal 0-5 [facility] Comment on above: Performed By: #### L 501.3620, L500.4050, L506.1001, L3600.5100, L3890.6301, L501.9520, L501.9910, L100.0100, L501.4021 #### [facility] [address] [place], [address] ( Erythrocyte distribution width (RBC) [Ratio] 12.5 % Normal 11.6-14.6 [facility] Comment on above: Performed By: #### L 501.3620, L500.4050, L506.1001, L3600.5100, L3890.6301, L501.9520, L501.9910, L100.0100, L501.4021 #### [facility] [address] [place], [address] Hematocrit (Bld) [Volume fraction] 43.8 % Normal 40-54 [facility] Comment on above: Performed By: #### L 501.3620, L500.4050, L506.1001, L3600.5100, L3890.6301, L501.9520, L501.9910, L100.0100, L501.4021 #### [facility] [address] [place], [address] Hemoglobin (Bld) [Mass/Vol] 14.7 g/dL Normal 13.0-16.5 [facility] Comment on above: Performed By: #### L 501.3620, L500.4050, L506.1001, L3600.5100, L3890.6301, L501.9520, L501.9910, L100.0100, L501.4021 #### [facility] [address] [place], [address] IG% 1.000 High 0.0-0.9 [facility] Comment on above: Result Comment: IG% - Immature Granulocytes (promyelocytes, myelocytes and metamyelocytes) > 1% indicates that a LEFT SHIFT is Present. Performed By: #### L 501.3620, L500.4050, L506.1001, L3600.5100, L3890.6301, L501.9520, L501.9910, L100.0100, L501.4021 #### [facility] [address] [place], [address] Lymphocytes/100 WBC (Bld) 22.6 % Normal 19-41 [facility] Comment on above: Performed By: #### L 501.3620, L500.4050, L506.1001, L3600.5100, L3890.6301, L501.9520, L501.9910, L100.0100, L501.4021 #### [facility] [address] [place], [address] MCH (RBC) [Entitic mass] 32.5 pg High 27.0-32.0 [facility] Comment on above: Performed By: #### L 501.3620, L500.4050, L506.1001, L3600.5100, L3890.6301, L501.9520, L501.9910, L100.0100, L501.4021 #### [facility] [address] [place], [address] MCHC (RBC) [Mass/Vol] 33.6 g/dL Normal 32-36 [facility] Comment on above: Performed By: #### L 501.3620, L500.4050, L506.1001, L3600.5100, L3890.6301, L501.9520, L501.9910, L100.0100, L501.4021 #### [facility] [address] [place], [address] MCV (RBC) [Entitic vol] 96.7 fL High 80-94 [facility] Comment on above: Performed By: #### L 501.3620, L500.4050, L506.1001, L3600.5100, L3890.6301, L501.9520, L501.9910, L100.0100, L501.4021 #### [facility] [address] [place], [address] Monocytes/100 WBC (Bld) 15.2 % High 0-10 [facility] Comment on above: Performed By: #### L 501.3620, L500.4050, L506.1001, L3600.5100, L3890.6301, L501.9520, L501.9910, L100.0100, L501.4021 #### [facility] [address] [place], [address] Neutrophils/100 WBC (Bld) 56.8 % Normal 47-70 [facility] Comment on above: Performed By: #### L 501.3620, L500.4050, L506.1001, L3600.5100, L3890.6301, L501.9520, L501.9910, L100.0100, L501.4021 #### [facility] [address] [place], [address] Nucleated RBC (Bld) [#/Vol] 0 10*3/uL Normal 0-5 [facility] Comment on above: Performed By: #### L 501.3620, L500.4050, L506.1001, L3600.5100, L3890.6301, L501.9520, L501.9910, L100.0100, L501.4021 #### [facility] [address] [place], [address] Platelet mean volume (Bld) [Entitic vol] 12.9 fL High 6.2-12.0 [facility] Comment on above: Performed By: #### L 501.3620, L500.4050, L506.1001, L3600.5100, L3890.6301, L501.9520, L501.9910, L100.0100, L501.4021 #### [facility] [address] [facility] [place], [address] ( Platelets (Bld) [#/Vol] 138 10*3/uL Low 150-450 [facility] Comment on above: Performed By: #### L 501.3620, L500.4050, L506.1001, L3600.5100, L3890.6301, L501.9520, L501.9910, L100.0100, L501.4021 #### [facility] [address] [facility] [place], [address] RBC (Bld) [#/Vol] 4.53 10*6/uL Low 4.6-6.2 [facility] Comment on above: Performed By: #### L 501.3620, L500.4050, L506.1001, L3600.5100, L3890.6301, L501.9520, L501.9910, L100.0100, L501.4021 #### [facility] [address] [place], [address] RDW SD 45.0 fl High 35.1-43.9 [facility] Comment on above: Performed By: #### L 501.3620, L500.4050, L506.1001, L3600.5100, L3890.6301, L501.9520, L501.9910, L100.0100, L501.4021 #### [facility] [address] [facility] [place], [place], [id number] WBC (Bld) [#/Vol] 5.0 10*3/uL Normal 4.4-11.0 [facility] Comment on above: Performed By: #### L 501.3620, L500.4050, L506.1001, L3600.5100, L3890.6301, L501.9520, L501.9910, L100.0100, L501.4021 #### [facility] [address] [place], [address] CPK Total, Creatine Kinaseon 07-17-2024 CPK TOTAL 98 U/L Normal 24-195 [facility] Comment on above: Performed By: #### L 501.3620, L500.4050, L506.1001, L3600.5100, L3890.6301, L501.9520, L501.9910, L100.0100, L501.4021 #### [facility] [address] [facility] [place], [address] Carbon dioxide, total [Moles /volume] in Central venous bloodOrdered By: Jermaine Orellana on 07-17-2024 CO2 [Moles/Vol] 20.0 mmol/L Low 21.0-32.0 [facility] Chloride assayOrdered By: Daniel Orellana on 07-17-2024 Chloride [Moles/Vol] 105 mmol/L 98-108 [facility] Comprehensive Metabolic Prof ilon 07-17-2024 Albumin [Mass/Vol] 4.0 g/dL Normal 3.4-4.8 [facility] Comment on above: Performed By: #### L 501.3620, L500.4050, L506.1001, L3600.5100, L3890.6301, L501.9520, L501.9910, L100.0100, L501.4021 #### [facility] [address] [place], [address] Albumin/Globulin [Mass ratio] 1.5 {ratio} Normal 0.9-2.4 [facility] Comment on above: Performed By: #### L 501.3620, L500.4050, L506.1001, L3600.5100, L3890.6301, L501.9520, L501.9910, L100.0100, L501.4021 #### [facility] [address] [place], [address] ALK PHOS 73 U/L Normal 40-129 [facility] Comment on above: Performed By: #### L 501.3620, L500.4050, L506.1001, L3600.5100, L3890.6301, L501.9520, L501.9910, L100.0100, L501.4021 #### [facility] [address] [place], [address] ALT [Catalytic activity/Vol] 18 U/L Normal <=46 [facility] Comment on above: Performed By: #### L 501.3620, L500.4050, L506.1001, L3600.5100, L3890.6301, L501.9520, L501.9910, L100.0100, L501.4021 #### [facility] [address] [place], [address] AST [Catalytic activity/Vol] 26 U/L Normal <=37 [facility] Comment on above: Result Comment: Hemo lysis present, Results??could be affected. ?? Performed By: #### L 501.3620, L500.4050, L506.1001, L3600.5100, L3890.6301, L501.9520, L501.9910, L100.0100, L501.4021 #### [facility] [address] [place], [address] Bilirubin [Mass/Vol] 0.28 mg/dL Normal 0.00-1.30 [facility] Comment on above: Performed By: #### L 501.3620, L500.4050, L506.1001, L3600.5100, L3890.6301, L501.9520, L501.9910, L100.0100, L501.4021 #### [facility] [address] [place], [address] BUN/CRE 17.2 RATIO Normal 10-20 [facility] Comment on above: Performed By: #### L 501.3620, L500.4050, L506.1001, L3600.5100, L3890.6301, L501.9520, L501.9910, L100.0100, L501.4021 #### [facility] [address] [place], [address] Calcium [Mass/Vol] 8.7 mg/dL Normal 7.6-11.0 [facility] Comment on above: Performed By: #### L 501.3620, L500.4050, L506.1001, L3600.5100, L3890.6301, L501.9520, L501.9910, L100.0100, L501.4021 #### [facility] [address] [place], [address] Chloride [Moles/Vol] 105 mmol/L Normal 98-108 [facility] Comment on above: Performed By: #### L 501.3620, L500.4050, L506.1001, L3600.5100, L3890.6301, L501.9520, L501.9910, L100.0100, L501.4021 #### [facility] [address] [place], [address] CO2 [Moles/Vol] 20.0 mmol/L Low 21.0-32.0 [facility] Comment on above: Performed By: #### L 501.3620, L500.4050, L506.1001, L3600.5100, L3890.6301, L501.9520, L501.9910, L100.0100, L501.4021 #### [facility] [address] [place], [address] Creatinine [Mass/Vol] 1.34 mg/dL High 0.70-1.20 [facility] Comment on above: Performed By: #### L 501.3620, L500.4050, L506.1001, L3600.5100, L3890.6301, L501.9520, L501.9910, L100.0100, L501.4021 #### [facility] [address] [place], [place], [address] GAP 15 Normal 5-15 [facility] Comment on above: Performed By: #### L 501.3620, L500.4050, L506.1001, L3600.5100, L3890.6301, L501.9520, L501.9910, L100.0100, L501.4021 #### [facility] [address] [place], [place], [id number] (594) GFR/1.73 sq M.predicted among non-blacks MDRD (S/P/Bld) [Vol rate/Area] 58 mL/min/{1.73_m2} Low >60 [facility] Comment on above: Result Comment: mL/m in/1.73m2 CKD-EPI Creatinine Equation (2020) Performed By: #### L 501.3620, L500.4050, L506.1001, L3600.5100, L3890.6301, L501.9520, L501.9910, L100.0100, L501.4021 #### [facility] [address] [place], [place], [id number] ([address]) Globulin (S) [Mass/Vol] 2.6 g/dL Normal 2.2-4.2 [facility] Comment on above: Performed By: #### L 501.3620, L500.4050, L506.1001, L3600.5100, L3890.6301, L501.9520, L501.9910, L100.0100, L501.4021 #### [facility] [address] [place], [address] Glucose [Mass/Vol] 98 mg/dL Normal 70-99 [facility] Comment on above: Performed By: #### L 501.3620, L500.4050, L506.1001, L3600.5100, L3890.6301, L501.9520, L501.9910, L100.0100, L501.4021 #### [facility] [address] [place], [address] Potassium [Moles/Vol] 4.2 mmol/L Normal 3.3-5.1 [facility] Comment on above: Result Comment: Hemo lysis present, Results??could be affected. ?? Performed By: #### L 501.3620, L500.4050, L506.1001, L3600.5100, L3890.6301, L501.9520, L501.9910, L100.0100, L501.4021 #### [facility] [address] [place], [address] Sodium [Moles/Vol] 140 mmol/L Normal 133-145 [facility] Comment on above: Performed By: #### L 501.3620, L500.4050, L506.1001, L3600.5100, L3890.6301, L501.9520, L501.9910, L100.0100, L501.4021 #### [facility] [address] [place], [address] T PROT 6.6 g/dL Normal 5.9-8.4 [facility] Comment on above: Performed By: #### L 501.3620, L500.4050, L506.1001, L3600.5100, L3890.6301, L501.9520, L501.9910, L100.0100, L501.4021 #### [facility] [address] [place], [place], [address] Urea nitrogen [Mass/Vol] 23 mg/dL High 4-19 [facility] Comment on above: Performed By: #### L 501.3620, L500.4050, L506.1001, L3600.5100, L3890.6301, L501.9520, L501.9910, L100.0100, L501.4021 #### [facility] [address] [place], [place], [id number] Eosinophil percentageOrdered By: Jermaine Orellana on 07-17-2024 Eosinophils/100 WBC (Bld) 3.6 % 0-5 [facility] Erythrocyte distribution wid th ratioOrdered By: Jermaine Orellana on 07-17-2024 Erythrocyte distribution width (RBC) [Ratio] 12.5 % 11.6-14.6 [facility] Erythrocyte distribution wid th standard deviationOrdered By: Jermaine Orellana on 07-17-2024 Erythrocyte distribution width (RBC) [Ratio] 45.0 fl High 35.1-43.9 [facility] Glomerular filtration rate ( GFR) estimation/1.73 sq m using serum, plasma, or whole bOrdered By: Jermaine Orellana on 07-17-2024 GFR/1.73 sq M.predicted among non-blacks MDRD (S/P/Bld) [Vol rate/Area] 58 mL/min/{1.73_m2} Low >60 [facility] Comment on above: mL/min/1.73m2 CKD-EP I Creatinine Equation (2020) Hematocrit Auto (Bld) [Volum e fraction]Ordered By: Jermaine Orellana on 07-17-2024 Hematocrit (Bld) [Volume fraction] 43.8 % 40-54 [facility] Hemoglobin measurementOrdere d By: Jermaine Orellana on 07-17-2024 Hemoglobin (Bld) [Mass/Vol] 14.7 g/dL 13.0-16.5 [facility] Hepatitis C Antibodyon 07-17 Hepatitis C Ab Non-Reactive Normal Nonreactive [facility] Comment on above: Result Comment: Reac tive: Presumptive evidence of antibodies to HCV. Follow CDC recommendations for supplemental testing. Non-Reactive: Antibodies to HCV were not detected; does not exclude the possibility of exposure to HCV Reactive Results are presumptive evidence of antibodies to HCV. Follow CDC recommendations for supplemental testing. Order confirmation testing: HCV Quant by PCR testing - HCVPCR lc#[id number] Non Reactive: < 0.8 Equivocal: >/= 0.8 to < 1.0 Reactive: >/= 1.0 The [facility] requires that a reactive/equivocal HCV antibody result be sent out for confirmation. HCV Quant by PCR testing. Performed By: #### L 501.3620, L500.4050, L506.1001, L3600.5100, L3890.6301, L501.9520, L501.9910, L100.0100, L501.4021 #### [facility] [address] [place], [place], [id number] Immature granulocytes/100 WB C Auto (Bld)Ordered By: Jermaine Orellana on 07-17-2024 Immature granulocytes/100 WBC (Bld) 1.000 % High 0.0-0.9 [facility] Comment on above: IG% - Immature Granu locytes (promyelocytes, myelocytes and metamyelocytes) > 1% indicates that a LEFT SHIFT is Present. L501.4021on 07-17-2024 Trop T High Sen 11 ng/L Normal <=22 [facility] Comment on above: Performed By: #### L 501.3620, L500.4050, L506.1001, L3600.5100, L3890.6301, L501.9520, L501.9910, L100.0100, L501.4021 #### [facility] [address] [place], [place], [id number] Laboratory - Chemistry and C hemistry - challengeOrdered By: Jermaine Orellana on 07-17-2024 AST [Catalytic activity/Vol] 26 U/L <38 [facility] Comment on above: Hemolysis present, R esults could be affected. MCV (mean corpuscular volume ) determinationOrdered By: Jermaine Orellana on 07-17-2024 MCV (RBC) [Entitic vol] 96.7 fL High 80-94 [facility] Mean corpuscular hemoglobin (MCH) determinationOrdered By: Jermaine Orellana on 07-17-2024 MCH (RBC) [Entitic mass] 32.5 pg High 27.0-32.0 [facility] Mean corpuscular hemoglobin concentration (MCHC) determinationOrdered By: Jermaine Orellana on 07-17-2024 MCHC (RBC) [Mass/Vol] 33.6 g/dL 32-36 [facility] Mean platelet volume determi nationOrdered By: Jermaine Orellana on 07-17-2024 Platelet mean volume (Bld) [Entitic vol] 12.9 fL High 6.2-12.0 [facility] Monocyte percentageOrdered B y: Jermaine Orellana on 07-17-2024 Monocytes/100 WBC (Bld) 15.2 % High 0-10 [facility] Neutrophil [facility]Or[facility]: [facility] Neutrophils/100 WBC (Bld) 56.8 % 47-70 [facility] Nucleated red blood cell per centageOrdered By: Jermaine Orellana on 07-17-2024 Nucleated RBC/100 WBC (Bld) [Ratio] 0 % 0-5 [facility] PSA,Total - Annual Screenon 07-17-2024 PSA,TOT SCREEN 1.91 ng/mL Normal 0.02-4.00 [facility] Comment on above: Result Comment: This test [...] L3600.5100, L3890.6301, L501.9520, L501.9910, L100.0100, L501.4021 #### [facility] Yovani Huynh [place], [place], [address] Platelet countOrdered By: Daniel Orellana on 07-17-2024 Platelets (Bld) [#/Vol] 138 10*3/uL Low 150-450 [facility] Potassium measurement (mass/ volume)Ordered By: Jermaine Orellana on 07-17-2024 Potassium (Unsp spec) [Mass/Vol] 4.2 mmol/L 3.3-5.1 [facility] Comment on above: Hemolysis present, R esults could be affected. RBC Auto (Bld) [#/Vol]Ordere d By: Jermaine Orellana on 07-17-2024 RBC (Bld) [#/Vol] 4.53 10*6/uL Low 4.6-6.2 [facility] Serum creatinine measurement (mass/volume)Ordered By: Jermaine Orellana on 07-17-2024 Creatinine [Mass/Vol] 1.34 mg/dL High 0.70-1.20 [facility] Serum globulin measurementOr dered By: Jermaine Orellana on 07-17-2024 Globulin (S) [Mass/Vol] 2.6 g/dL 2.2-4.2 [facility] Serum glucose measurement (m ass/volume)Ordered By: Jermaine Orellana on 07-17-2024 Glucose [Mass/Vol] 98 mg/dL 70-99 [facility] Serum myoglobin measurementO rdered By: Jermaine Orellana on 07-17-2024 Myoglobin [Mass/Vol] 46 ng/mL 28-72 [facility] Comment on above: Performed at: [address] [id number] Director: Dave Jain PhD, Phone: [phone] Serum or plasma alanine cueto otransferase (ALT) measurementOrdered By: Jermaine Orellana on 07-17-2024 ALT [Catalytic activity/Vol] 18 U/L <47 [facility] Serum or plasma albumin sekou urement (mass/volume)Ordered By: Jermaine Orellana on 07-17-2024 Albumin [Mass/Vol] 4.0 g/dL 3.4-4.8 [facility] Serum or plasma albumin/glob ulin mass ratioOrdered By: Jermaine Orellana on 07-17-2024 Albumin/Globulin [Mass ratio] 1.5 {ratio} 0.9-2.4 [facility] Serum or plasma alkaline dave sphatase measurementOrdered By: Jermaine Orellana 07-17-2024 ALP [Catalytic activity/Vol] 73 U/L 40-129 [facility] Serum or plasma calcium sekou urement (mass/volume)Ordered By: Jermaine Orlelana on 07-17-2024 Calcium [Mass/Vol] 8.7 mg/dL 7.6-11.0 [facility] Serum or plasma creatine kin ase activityOrdered By: Jermaine Orellana 07-17-2024 CK [Catalytic activity/Vol] 98 U/L 24-195 [facility] Serum or plasma urea nitroge n measurement (mass/volume)Ordered By: Jermaine Orellana 07-17-2024 Urea nitrogen [Mass/Vol] 23 mg/dL High 4-19 [facility] Sodium levelOrdered By: eJrmaine Orellana on 07-17-2024 Sodium [Moles/Vol] 140 mmol/L 133-145 [facility] TSH DL <= 0.005 mIU/L QnOrde red By: Jermaine Orellana on 07-17-2024 TSH Qn 2.750 uIU/mL 0.300-4.200 [facility] Thyroid Stim Hormone (TSH)on 07-17-2024 TSH 2.750 uIU/mL Normal 0.300-4.200 [facility] Comment on above: Performed By: #### L 501.3620, L500.4050, L506.1001, L3600.5100, L3890.6301, L501.9520, L501.9910, L100.0100, L501.4021 #### [facility] [address], [address] Total proteinOrdered By: Jermaine Orellana on 07-17-2024 Protein [Mass/Vol] 6.6 g/dL 5.9-8.4 [facility] Troponin T.cardiac [Mass/vol ume] in Serum or Plasma by High sensitivity methodOrdered By: Jermaine Orellana on 07-17-2024 Troponin T.cardiac High sensitivity method [Mass/Vol] 11 ng/L <22 [facility] Vitamin D,25 Hydroxyon 07-17 Vitamin D 25-OH 29.3 ng/mL Low 30-100 [facility] Comment on above: Result Comment: [place] min D Status Deficiency: <20 ng/mL (50nmol/L) Insufficiency: 20-30 ng/mL (50-75 nmol/L) Sufficiency: 30-100 ng/mL (75-250 nmol/L) Toxicity: >100 ng/mL (>250 nmol/L) Performed By: #### L 501.3620, L500.4050, L506.1001, L3600.5100, L3890.6301, L501.9520, L501.9910, L100.0100, L501.4021 #### [facility] [address] [place], [place], [id number] White blood cell (WBC) count Ordered By: Jermaine Orellana on 07-17-2024 WBC (Bld) [#/Vol] 5.0 10*3/uL 4.4-11.0 [facility] Encounters Encounter Date Encounter Type Care Provider Facility Start: 08-22-2024 ambulatory Jermaine Orellana Facility:[facility] Start: 07-31-2024 End: 07-31-[address] Jermaine Orellana MD Work Phone: [facility] Work Phone: Start: 07-31-2024 End: 07-31-[address] Jermaine Orellana MD -Cardiovascular Services Work Phone: Start: 07-31-2024 End: 07-31-2024 ambulatory Jermaine Orellana Facility:[facility] Start: 07-17-2024 End: 07-17-[address] Jermaine Orellana MD Work Phone: [facility] Work Phone: Start: 07-17-2024 End: 07-17-[address] Jermaine Orellana MD -Laboratory Work Phone: Start: 07-17-2024 End: 07-17-2024 ambulatory Jermaine Vázquez Esteban Facility:[facility] Start: 02-05-2018 Patient encounter procedure MARLY MORRIS [facility] Ambulatory Start: 01-31-2018 End: 01-31-2018 Patient encounter procedure Florinda Hortensia Norberto [facility] Comment on above: [...] HCV Quant by PCR testing - HCVPCR lc#[id number] Non Reactive: < 0.8 Equivocal: >/= 0.8 [...] Date Payer Category Payer Self-pay 2024 Unknown [id number] Unknown [facility] [id number] Unknown [id number] Unknown [id number] Unknown [id number] Social History Date Type Detail Facility [facility] Sex Assigned At Not on file [facility] Tobacco smoking stat [facility] Unknown if ever smoked [facility] Work Phone: Start: 1955 Sex Assigned At Male [facility] Evaluation note Note Date & Type Note Facility Evaluation note No assessment information availa ble [facility] Work Phone: Reason for referral (narrative) Note Date & Type Note Facility Reason for referral (narrative) No reason for referral information available [facility] Work Phone: History of Present Illness * Florinda Thornton, [place] - 01/31/2018 11:21 AM EST Faxed and scan records from [facility] on 01/30 to [employer] in this encounter Summary Purpose Family History No Family History Records FoundNo Family History Records Found Advance Directives No Advanced Directives Records FoundNo Advanced Directives Records Found Chief Complaint and Reason for Visit Chief Complaint Admit Date ABDOMINAL AORTIC ANEURYSM, W/O RUPTURE, UNSPECIFIE July 31, 2024 8:44am Additional Source Comments Reason for Visit (unrecogniz ed section and content) Reason Comments medical records (unrecognized sect ion and content) No Status Records FoundNo Status Records Found INFORMATION SOURCE (unrecogn ized section and content) DATE CREATED AUTHOR 02/07/2018 [facility] latory DATE CREATED AUTHOR AUTHOR'S ORGANIZ ATION 08/14/2024 [facility] Care Teams (unrecognized sec tion and [...] July 17, 2024 End: July 17, 2024 Team Status: Inactive Member Role Status Dates Dr. Jermaine Orellana MD Primary Care Provider Active Start: July 31, 2024 End: July 31, 2024 Dr. Jermaine Orellana MD Attending Provider Active Start: July 31, 2024 End: July 31, 2024 Dr. Jermaine Orellana MD Referring Provider Active Start: July 31, 2024 End: July 31, 2024 Goals (unrecognized section and content) Goals may be documented in a n alternate sectionGoals may be documented in an alternate section FOR RECORDS PERTAINING TO PATIENTS [...] BE BASED ON THE PRIMARY CLINICAL RECORDS. [facility] [employer] [facility]. provides no warranty or guarantee of the accuracy or completeness of information in this document.
--- NOTE | 2024-08-22 13:20 | STRESSREP_ITS ---
Stress Test Report Exercise myocardial perfusion stress test. ? 69-year-old male with past medical history of hypertension and hyperlipidemia has been having chest pain and shortness of breath. ? Stress protocol: Resting EKG demonstrates normal sinus rhythm with a rate of 53 bpm resting blood pressure is 122/92 mmHg.??The patient exercised according to the regular [place] protocol for a total duration of [6 minutes attaining a maximum heart rate of 142 bpm which was 93% of maximum predicted heart rate; the maximum workload was [7.8 ] metabolic equivalents.??At rest there were no ST or T wave changes noted to suggest ischemia and at peak exercise lateral ST depression were noted and they are suggestive of ischemia.??Reason for test termination was that target heart rate was achieved, shortness of breath and slight discomfort in chest with ambulation. The peak blood pressure was 178/92 mmHg.??Rate-pressure product was [address] ? Myocardial perfusion protocol. [11.3] mCi of technetium 99m sestamibi was injected at rest.??The patient exercised according to regular [place] protocol for total duration of [6 minutes and 17 seconds] and at peak exercise [33.7] mCi of technetium 99m sestamibi was injected stress images were obtained stress and rest images were reconstructed in comparing the short axis vertical long and horizontal long axis.??Gated shagufta ges were also obtained. ? Perfusion SPECT analysis: Review of the stress images demonstrate decrease uptake of tracer noted in inferior lateral segments of the left ventricle.??The resting images similarly demonstrate normal uptake of tracer noted in all areas of the myocardium.??SPECT imaging demonstrated a mild to medium size, reversible perfusion abnormality in the inferior lateral segment of the LV suggesting ischemia with no previous infarct was noted.??TID ratio is 0.9. SDS is 4. ? Gated SPECT analysis: The gated ejection fraction is 61%. ? Conclusion: Abnormal exercise myocardial perfusion stress test suggesting mild to moderate reversible inferolateral ischemia. Preserved ejection fraction
== END | disposition home or self-care (01) ==
LOC: CVS 06:17
PROVIDERS: PCP Family Medicine Geriatric Medicine; Referring Provider Family Medicine Geriatric Medicine; Visit Provider Family Medicine Geriatric Medicine
DX: R07.9 Chest pain, unspecified (principal); R06.02 Shortness of breath; I71.40 Abdominal aortic aneurysm, without rupture, unspecified
CPT/HCPCS: 78452; 93017; 93306; A9500; A4216

== ENCOUNTER → 2025-01-16 | Outpatient (CLI) | payer OTHER, MEDICARE, SELFPAY ==
[2025-01-16 14:53] LABS: Hematocrit 42.8 % (40-54); Hemoglobin 14.6 g/dL (13.0-16.5); Immature Granulocytes Count 0.040 X10^3/uL (0.0-0.0); Mean Corp Hgb Conc 34.1 g/dL (32-36); Mean Corpuscular Volume 98.4 fL (80-94); Mean Platelet Vol. 12.3 fl (6.2-12.0); NRBC Flagged by Analyzer 0 % (0-5); Platelet Count 120 K/mm3 (150-450); RBC Distribution Width CV 12.5 % (11.6-14.6); RBC Distribution Width SD 45.2 fl (35.1-43.9); Red Blood Count 4.35 M/mm3 (4.6-6.2); White Blood Count 5.5 K/mm3 (4.4-11.0)
[2025-01-16 15:40] LABS: Vitamin D,25 Hydroxy 34.1 ng/mL (30-100)
[2025-01-16 15:42] LABS: AST(SGOT) 28 U/L (<=37); Alanine Aminotransfer ALT/SGPT 27 U/L (<=46); Albumin, Serum 4.3 g/dL (3.4-4.8); Alkaline Phosphatase 78 U/L (40-129); Anion Gap 11 (5-15); BUN 24 mg/dL (4-19); BUN/Creat Ratio 21.9 RATIO (10-20); Calcium,Total 8.9 mg/dL (7.6-11.0); Carbon Dioxide 25.4 mmol/L (21.0-32.0); Chloride 105 mmol/L (98-108); Globulin 2.5 g/dL (2.2-4.2); Glucose 88 mg/dL (70-99); Potassium 4.3 mmol/L (3.3-5.1)
--- OUTSIDE RECORDS SUMMARY | 2025-01-16 18:07 | XMS RPT_ITS | CCD ---
Author Organization [facility] Care Team Providers Care Ctrs Name Role Phone Unavailable Unavailable Unavailable FLORINDA THORNTON Unavailable Unavailable MARLY MORRIS Unavailable Unavaila lester Orellana MD, Dr. Jermaine Vázquez Primary Care Provider Esteban CARCAMO, Dr. Jermaine Vázquez Attending Provider Esteban CARCAMO, Dr. Jermaine Vázquez Referring Provider Joan CARCAMO, Dr. Zavala Attending Provider Esteban, Jermaine Chi Referring Unavailable Esteban, Jermaine Chi Attending Unavailable Esteban, Jermaine Chi Primary Care Unavailable Esteban, Jermaine Chi Attending Unavailable Esteban, Jermaine Chi Primary Care Unavailable Esteban, Jermaine Chi Referring Unavailable Esteban, Jermaine Chi Attending Unavailable Esteban, Jermaine Chi Primary Care Unavailable Esteban, Jermaine Chi Referring Unavailable Lucas Franco Attending Unavailable Esteban, Jermaine Chi Primary Care Unavailable Problems Problem Classification Problem Date Documented Da te Episodic/Chronic Disorders of lipid metabolism (1 source) Hyperlipidemia, unspecified; Translations: [Hyperlipidemia, unspecified] Onset: 07-24-2024 Chronic Nonspecific chest pain (1 source) Chest pain, unspecified; Translations: [Chest pain, unspecified] Onset: 08-29-2024 Episodic Unclassified (1 source) Abdominal aortic aneurysm, without rupture, unspecified; Translations: [Abdominal aortic aneurysm, without rupture, unspecified] Onset: 08-06-2024 Results Test Name Value Interpretation Reference Range Facil ity Echocardiogram study reportO rdered By: Lucas Franco on 08-25-2024 Study report [facility] Cardi[facility] [address] [place] [address] Echo Complete 08/21/242019 MR#: [id number] Acct: [id number] Name: JANEE HOROWITZ Rep #:[id number] : 1955 69 From: Lucas Starks Attending Dr: Dr. Jermaine Orellana MD Status: REG CLI Ordering Dr: Jermaine Orellana MD Date: 12/07 Location: [facility] Sex: M C Admitted: Reason For Study Reason For Study: SOB, Chest Pain Procedure This was a 2D Doppler, Color Flow transthoracic echocardiogram. Myocardial strain analysis was performed in this exam to aid in the assessment of cardiac function. Exam performed in department. Left Ventricle Normal LV size. Moderate concentric left ventricular hypertrophy. The global longitudinal strain = -14.5% (abnormal). Stage 1 diastolic dysfunction. No regional wall motion abnormalities noted. Right Ventricle Normal RV size. Normal systolic function. Atria Normal left atrium. Normal right atrium. Mitral Valve Normal mitral valve. Tricuspid Valve Normal tricuspid valve. Mild tricuspid valve insufficiency. Aortic Valve Trisinus/trileaflet aortic valve. Pulmonic Valve Normal pulmonic valve. Great Vessels Mildly dilated aortic root. The pulmonary artery is normal size. Normal inferiorvena cava. Pericardium/Pleural No pericardial effusion. MMode/2D Measurements & Calculations LVIDd: 5.3 cm IVSd: 1.4 cm Ao root diam: 4.0 cm LVIDs: 3.8 cm LVPWd: 1.3 cm RVDd: 3.4 cm FS: 27.6 % ____ LAV(MOD-bp): 49.0 ml LVAd ap4: 31.4 cm2 SV(MOD-sp4): 55.7 ml LAV(MOD-bp) Indexed: 23.7 ml/m2 LVLd ap4: 8.0 cm SI(MOD-sp4): 27.0 ml/m2 LAV(MOD-sp2): 46.7 ml EDV(MOD-sp4): 100.8 ml LAV(MOD-sp4): 39.4 ml EDV(sp4-el): 104.8 ml LVAs ap4: 19.5 cm2 LVLs ap4: 7.0 cm ESV(MOD-sp4): 45.1 ml ESV(sp4-el): 46.0 ml EF(MOD-sp4): 55.2 % EF(sp4-el): 56.1 % ___ SV(sp4-el): 58.8 ml Ao sinus diam: 4.[address] Junction: 3.3 cm ____ LA dimension(2D): 3.9 cm LA A4 area: 14.7 cm2 RA A4 area: 13.7 cm2 Time Measurements MV dec time: 0.22 sec Doppler Measurements & Calculations MV E max lonny: 47.0 cm/sec Lat Peak E' Lonny: 5.5 cm/sec Med Peak E' Lonny: 5.2 cm/sec MV A max lonny: 57.7 cm/sec E/E' lat: 8.6 E/E' med: 9.1 MV E/A: 0.82 ____ MV V2 max: 72.4 cm/sec MV P1/2t max lonny: 47.3 cm/sec Ao V2 max: 114.7 cm/sec MV max P.1 mmHg MV P1/2t: 79.8 msec Ao max P.3 mmHg MV V2 mean: 35.2 cm/sec MV dec slope: 173.5 cm/sec2 Ao V2 mean: 80.5 cm/sec MV mean P.59 mmHg Ao mean P.0 mmHg MV V2 VTI: 18.9 cm MVA(P1/2t): 2.8 cm2 Ao V2 VTI: 24.3 cm AV (velocity ratio): 0.74 ____ LV V1 max: 77.1 cm/sec PA V2 max: 84.3 cm/sec TR max lonny: 222.3 cm/sec LV V1 max P.4 mmHg TR max P.8 mmHg LV V1 mean P.3 mmHg LV V1 mean: 52.1 cm/sec LV V1 VTI: 18.1 cm ECHO/Echo Complete Interpretation Summary Normal LV size. Moderate concentric left ventricular hypertrophy. The global longitudinal strain = -14.5% (abnormal). Stage 1 diastolic dysfunction. Mildly dilated aortic root. __ Ordering Physician: Jermaine Orellana Chi Referring Physician: Jermaine Orellana Chi Performed By: Collins Quiñones RCS 07/131706 _ Lucas Franco MD CC: Dr. Jermaine Orellana MD ~ Date Dictated: 08/21/242019 Transcribed: 08/25/241706 Spool Winder: Signed [facility] Work Phone: Cardiovascular stress test r eportOrdered By: Caden Jaramillo on 08-22-2024 Study report [facility] Cardiovascular Services [address] [place] [address] MR#: [id number] Acct: [id number] Name: JANEE HOROWITZ Rep #: [id number] : 1955 69 From: Caden Jaramillo MD Primary Care: Dr. Jermaine Orellana MD Status : REG CLI Referring Dr: Jermaine Oerllana MD Sex: M C Stress Test Report Exercise myocardial perfusion stress test. ? 69-year-old male with past medical history of hypertension and hyperlipidemia has been having chest pain and shortness of breath. ? Stress protocol: Resting EKG demonstrates normal sinus rhythm with a rate of 53 bpm resting bloodpressure is 122/92 mmHg.??The patient exercised according to the regular [place] protocol for a total duration of [6 minutes attaining a maximum heart rate of 142 bpm which was 93% of maximum predicted heart rate; the maximum workload was [7.8 ] metabolic equivalents.??At rest there were no ST or T wave changes noted to suggest ischemia and at peak exercise lateral ST depression were noted and they are suggestive of ischemia.??Reason for test termination was that target heart rate was achieved, shortness of breath and slight discomfort in chest withambulation. The peak blood pressure was 178/92 mmHg.??[place]-pressur [place] product was [address]31 ? Myocardial perfusion protocol. [11.3] mCi of technetium 99m sestamibi was injected at rest.??The patient exercised according to regular [place] protocol for total duration of [6 minutes and 17 seconds] and at peak exercise [33.7] mCi of technetium 99m sestamibi was injected stress images were obtained stress and rest images were reconstructed in comparing the short axis vertical long and horizontal long axis.??Gated images were also obtained. ? Perfusion SPECT analysis: Review of the stress images demonstrate decrease uptake of tracer noted in inferior lateral segments of the left ventricle.??The resting images similarly demonstrate normal uptake of tracer noted in all areas of the myocardium.??SPECT imaging demonstrated a mild to medium size, reversible perfusion abnormality in the inferior lateral segment of the LV suggesting ischemia with no previous infarct was noted.??TID ratio is 0.9. SDS is 4. ? Gated SPECT analysis: The gated ejection fraction is 61%. ? Conclusion: Abnormal exercise myocardial perfusion stress test suggesting mild to moderate reversible inferolateral ischemia. Preserved ejection fraction 08/22/24 1353 Date _ Caden Jaramillo MD CC: Dr. Jermaine Orellana MD ~ Date Dictated: 08/22/24 1320 Date Transcribed: 08/22/241319 Spool Winder: JERMAINE Signed [facility] Echo Completeon 08-22-2024 Echo Complete [facility] Cardi[facility] Services [address] [place] [address] Echo Complete 08/21/242019 MR#: [id number] Acct: [id number] Name: JANEE HOROWITZ Rep #: [id number] : 1955 69 From: Lucas Franco MD Attending Dr: Dr. Jermaine Orellana MD Status: [facility] Ordering Dr: Jermaine Orellana MD Date: 08/22/24 Location: [facility] Sex: M C Admitted: Reason For Study Reason For Study: SOB, Chest Pain Procedure This was a 2D Doppler, Color Flow transthoracic echocardiogram. Myocardial strain analysis was performed in this exam to aid in the assessment of cardiac function. Exam performed in department. Left Ventricle Normal LV size. Moderate concentric left ventricular hypertrophy. The global longitudinal strain = - 14.5% (abnormal). Stage 1 diastolic dysfunction. No regional wall motion abnormalities noted. Right Ventricle Normal RV size. Normal systolic function. Atria Normal left atrium. Normal right atrium. Mitral Valve Normal mitral valve. Tricuspid Valve Normal tricuspid valve. Mild tricuspid valve insufficiency. Aortic Valve Trisinus/trileaflet aortic valve. Pulmonic Valve Normal pulmonic valve. Great Vessels Mildly dilated aortic root. The pulmonary artery is normal size. Normal inferior vena cava. Pericardium/Pleural No pericardial effusion. MMode/2D Measurements Calculations LVIDd: 5.3 cm IVSd: 1.4 cm Ao root diam: 4.0 cm LVIDs: 3.8 cm LVPWd: 1.3 cm RVDd: 3.4 cm FS: 27.6 % __ LAV(MOD-bp): 49.0 ml LVAd ap4: 31.4 cm2 SV(MOD-sp4): 55.7 ml LAV(MOD-bp) Indexed: 23.7 ml/m2 LVLd ap4: 8.0 cm SI(MOD-sp4): 27.0 ml/m2 LAV(MOD-sp2): 46.7 ml EDV(MOD-sp4): 100.8 ml LAV(MOD-sp4): 39.4 ml EDV(sp4-el): 104.8 ml LVAs ap4: 19.5 cm2 LVLs ap4: 7.0 cm ESV(MOD-sp4): 45.1 ml ESV(sp4-el): 46.0 ml EF(MOD-sp4): 55.2 % EF(sp4-el): 56.1 % __ SV(sp4-el): 58.8 ml Ao sinus diam: 4.[address] Junction: 3.3 cm __ LA dimension(2D): 3.9 cm LA A4 area: 14.7 cm2 RA A4 area: 13.7 cm2 Time Measurements MV dec time: 0.22 sec Doppler Measurements Calculations MV E max lonny: 47.0 cm/sec Lat Peak E' Lonny: 5.5 cm/sec Med Peak E' Lonny: 5.2 cm/sec MV A max lonny: 57.7 cm/sec E/E' lat: 8.6 E/E' med: 9.1 MV E/A: 0.82 __ MV V2 max: 72.4 cm/sec MV P1/2t max lonny: 47.3 cm/sec Ao V2 max: 114.7 cm/sec MV max P.1 mmHg MV P1/2t: 79.8 msec Ao max P.3 mmHg MV V2 mean: 35.2 cm/sec MV dec slope: 173.5 cm/sec2 Ao V2 mean: 80.5 cm/sec MV mean P.59 mmHg Ao mean P.0 mmHg MV V2 VTI: 18.9 cm MVA(P1/2t): 2.8 cm2 Ao V2 VTI: 24.3 cm AV (velocity ratio): 0.74 __ LV V1 max: 77.1 cm/sec PA V2 max: 84.3 cm/sec TR max lonny: 222.3 cm/sec LV V1 max P.4 mmHg TR max P.8 mmHg LV V1 mean P.3 mmHg LV V1 mean: 52.1 cm/sec LV V1 VTI: 18.1 cm ECHO/Echo Complete Interpretation Summary Normal LV size. Moderate concentric left ventricular hypertrophy. The global longitudinal strain = -14.5% (abnormal). Stage 1 diastolic dysfunction. Mildly dilated aortic root. __ Ordering Physician: Jermaine Orellana Chi Referring Physician: Jermaine Orellana Chi Performed By: Collins Quiñones RCS 08/25/241706 Date Lucas Franco MD CC: Dr. Jermaine Orellana MD Date Dictated: 08/21/242019 Date Transcribed: 08/25/241706 Spool Winder: Signed Normal [facility] Stress Reporton 08-22-2024 Stress Report [facility] Cardiovascular Services [address] [place] [address] MR#: [id number] Acct: [id number] Name: JANEE HOROWITZ Rep #: [id number] : 1955 69 From: Caden Jaramillo MD Primary Care: Dr. Jermaine Orellana MD Status: REG CLI Referring Dr: Jermaine Orellana MD Sex: M C Stress Test Report Exercise myocardial perfusion stress test. ??? 69-year-old male with past medical history of hypertension and hyperlipidemia has been having chest pain and shortness of breath. ??? Stress protocol: Resting EKG demonstrates normal sinus rhythm with a rate of 53 bpm resting blood pressure is 122/92 mmHg.?The patient exercised according to the regular [place] protocol for a total duration of [6 minutes attaining a maximum heart rate of 142 bpm which was 93% of maximum predicted heart rate; the maximum workload was [7.8 ] metabolic equivalents.?A t rest there were no ST or T wave changes noted to suggest ischemia and at peak exercise lateral ST depression were noted and they are suggestive of ischemia.?Reas on for test termination was that target heart rate was achieved, shortness of breath and slight discomfort in chest with ambulation. The peak blood pressure was 178/92 mmHg.?Rate-pre ssure product was 19728 ??? Myocardial perfusion protocol. [11.3] mCi of technetium 99m sestamibi was injected at rest.?The patient exercised according to regular [place] protocol for total duration of [6 minutes and 17 seconds] and at peak exercise [33.7] mCi of technetium 99m sestamibi was injected stress images were obtained stress and rest images were reconstructed in comparing the short axis vertical long and horizontal long axis.?Gated images were also obtained. ??? Perfusion SPECT analysis: Review of the stress images demonstrate decrease uptake of tracer noted in inferior lateral segments of the left ventricle.?The resting images similarly demonstrate normal uptake of tracer noted in all areas of the myocardium.?SP ECT imaging demonstrated a mild to medium size, reversible perfusion abnormality in the inferior lateral segment of the LV suggesting ischemia with no previous infarct was noted.?TID ratio is 0.9. SDS is 4. ??? Gated SPECT analysis: The gated ejection fraction is 61%. ??? Conclusion: Abnormal exercise myocardial perfusion stress test suggesting mild to moderate reversible inferolateral ischemia. Preserved ejection fraction 08/22/24 1353 Date Caden Jaramillo MD CC: Dr. Jermaine Orellana MD Date Dictated: 08/22/241319 Date Transcribed: 08/22/241319 Spool Winder: JERMAINE Signed Normal [facility] Cardiovascular ultrasound re portOrdered By: Hi Martinez on 08-01-2024 Study report [facility] Cardiovascular Services [address] [place] [address] AAA Screening 07/31/24 0858 MR#: [id number] Acct: [id number] Name: JANEE HOROWITZ Rep #:[id number] : 1955 69 From: Hi Martinez MD Attending Dr: Dr. Jermaine Orellana MD Status: REG CLI Ordering Dr: Jermaine Orellana MD Date: Location: [facility] Sex: M C Admitted: Reason For Study [...] ~ Date Dictated: 07/31/24857 Date Transcribed: 08/01/242253 Spool Winder: Signed [facility] Other Phone: AAA Screeningon 07-31-2024 AAA Screening [facility] [address] [place] [address] AAA Screening 07/31/24857 MR#: [id number] Acct: [id number] Name: JANEE HOROWITZ Rep #: [id number] : 1955 69 From: Hi Martinez MD Attending Dr: Dr. Jermaine Orellana MD Status: REG CLI Ordering Dr: Jermaine Orellana MD Date: 07/31/24 Location: [facility] Sex: M C Admitted: Reason For Study [...] By: Jessica Mullen, RDCS, RVT 08/01/242253 Date Hi Martinez MD CC: Dr. Jermaine Orellana MD Date Dictated: 07/31/24 0858 Date Transcribed: 08/01/242253 Spool Winder: Signed Normal [facility] Myoglobin, Serumon 5 Myoglobin, Ser 46 ng/mL Normal 28-72 [facility] Comment on above: Result Comment: Perf ormed at: CB - [facility] [id number] [place], [place] [id number] Filler Sifter Helper: Dave Jain PhD, Phone: [phone] Performed By: #### L 501.3620, L500.4050, L506.1001, L3600.5100, L3890.6301, L501.9520, L501.9910, L100.0100, L501.4021 ####[facility] [address] [place], [address] Absolute lymphocyte countOrd ered By: Jermaine Esteban on 07-17-2024 Lymphocytes Auto (Unsp spec) [#/Vol] 1.13 10*3/uL 0.83-4.51 [facility] Absolute neutrophil countOrd ered By: [facility] 07-17-[facility]24 Neutrophils (Bld) [#/Vol] 2.9 10*3/uL 2.0-7.7 [facility] Anion gap in Serum or Plasma Ordered By: Jermaine Orellana on 07-17-2024 Anion gap [Moles/Vol] 15 mmol/L 5-15 [facility] Automated lymphocyte count a s percentage of total leukocytesOrdered By: Jermaine Orellana on 07-17-2024 Lymphocytes/100 WBC Auto (Unsp spec) 22.6 % 19-41 [facility] BUN/creatinine ratioOrdered By: [facility] on 07-17-2024 Urea nitrogen/Creatinine [Mass ratio] 17.2 mg/mg 10-20 [facility] Basophil percentageOrdered B y: Jermaine Fallok on 07-17-2024 Basophils/100 WBC (Bld) 0.8 % 0-1 [facility] Bilirubin, totalOrdered By: Jermaine Esteban on 07-17-2024 Bilirubin [Mass/Vol] 0.28 mg/dL 0.00-1.[address] [facility] CBC W/Diff, Automatedon Absolute Lymph 1.13 X10 3/uL Normal 0.83-4.51 [facility] Comment on above: Performed By: #### L 501.3620, L500.4050, L506.1001, L3600.5100, L3890.6301, L501.9520, L501.9910, L100.0100, L501.4021 #### [facility] Laboratory [address] [facility] [place], [address] Absolute Neut 2.9 X10 3/uL Normal 2.0-7.7 [facility] Comment on above: Performed By: #### L 501.3620, L500.4050, L506.1001, L3600.5100, L3890.6301, L501.9520, L501.9910, L100.0100, L501.4021 #### [facility] [address] [facility] [place], [address] Basophils/100 WBC (Bld) 0.8 % Normal 0-1 [facility] Comment on above: Performed By: #### L 501.3620, L500.4050, L506.1001, L3600.5100, L3890.6301, L501.9520, L501.9910, L100.0100, L501.4021 #### [facility] [address] [facility] [place], [address] Eosinophils/100 WBC (Bld) 3.6 % Normal 0-5 [facility] Comment on above: Performed By: #### L 501.3620, L500.4050, L506.1001, L3600.5100, L3890.6301, L501.9520, L501.9910, L100.0100, L501.4021 #### [facility] [address] [facility] [place], [address] Erythrocyte distribution width (RBC) [Ratio] 12.5 % Normal 11.6-14.6 [facility] Comment on above: Performed By: #### L 501.3620, L500.4050, L506.1001, L3600.5100, L3890.6301, L501.9520, L501.9910, L100.0100, L501.4021 #### [facility] [address] [place], [address] Hematocrit (Bld) [Volume fraction] 43.8 % Normal 40-54 [facility] Comment on above: Performed By: #### L 501.3620, L500.4050, L506.1001, L3600.5100, L3890.6301, L501.9520, L501.9910, L100.0100, L501.4021 #### [facility] [address] [place], [address] Hemoglobin (Bld) [Mass/Vol] 14.7 g/dL Normal 13.0-16.5 [facility] Comment on above: Performed By: #### L 501.3620, L500.4050, L506.1001, L3600.5100, L3890.6301, L501.9520, L501.9910, L100.0100, L501.4021 #### [facility] [address] [place], [address] IG% 1.000 High 0.0-0.9 [facility] Comment on above: Result Comment: IG% - Immature Granulocytes (promyelocytes, myelocytes and metamyelocytes) > 1% indicates that a LEFT SHIFT is Present. Performed By: #### L 501.3620, L500.4050, L506.1001, L3600.5100, L3890.6301, L501.9520, L501.9910, L100.0100, L501.4021 #### [facility] [address] [place], [address] Lymphocytes/100 WBC (Bld) 22.6 % Normal 19-41 [facility] Comment on above: Performed By: #### L 501.3620, L500.4050, L506.1001, L3600.5100, L3890.6301, L501.9520, L501.9910, L100.0100, L501.4021 #### [facility] [address] [place], [address] MCH (RBC) [Entitic mass] 32.5 pg High 27.0-32.0 [facility] Comment on above: Performed By: #### L 501.3620, L500.4050, L506.1001, L3600.5100, L3890.6301, L501.9520, L501.9910, L100.0100, L501.4021 #### [facility] [address] [place], [address] MCHC (RBC) [Mass/Vol] 33.6 g/dL Normal 32-36 [facility] Comment on above: Performed By: #### L 501.3620, L500.4050, L506.1001, L3600.5100, L3890.6301, L501.9520, L501.9910, L100.0100, L501.4021 #### [facility] [address] [place], [address] MCV (RBC) [Entitic vol] 96.7 fL High 80-94 [facility] Comment on above: Performed By: #### L 501.3620, L500.4050, L506.1001, L3600.5100, L3890.6301, L501.9520, L501.9910, L100.0100, L501.4021 #### [facility] [address] [place], [address] Monocytes/100 WBC (Bld) 15.2 % High 0-10 [facility] Comment on above: Performed By: #### L 501.3620, L500.4050, L506.1001, L3600.5100, L3890.6301, L501.9520, L501.9910, L100.0100, L501.4021 #### [facility] [address] [place], [address] Neutrophils/100 WBC (Bld) 56.8 % Normal 47-70 [facility] Comment on above: Performed By: #### L 501.3620, L500.4050, L506.1001, L3600.5100, L3890.6301, L501.9520, L501.9910, L100.0100, L501.4021 #### [facility] [address] [place], [address] Nucleated RBC (Bld) [#/Vol] 0 10*3/uL Normal 0-5 [facility] Comment on above: Performed By: #### L 501.3620, L500.4050, L506.1001, L3600.5100, L3890.6301, L501.9520, L501.9910, L100.0100, L501.4021 #### [facility] [address] [place], [address] Platelet mean volume (Bld) [Entitic vol] 12.9 fL High 6.2-12.0 [facility] Comment on above: Performed By: #### L 501.3620, L500.4050, L506.1001, L3600.5100, L3890.6301, L501.9520, L501.9910, L100.0100, L501.4021 #### [facility] [address] [place], [address] Platelets (Bld) [#/Vol] 138 10*3/uL Low 150-450 [facility] Comment on above: Performed By: #### L 501.3620, L500.4050, L506.1001, L3600.5100, L3890.6301, L501.9520, L501.9910, L100.0100, L501.4021 #### [facility] [address] [place], [address] RBC (Bld) [#/Vol] 4.53 10*6/uL Low 4.6-6.2 [facility] Comment on above: Performed By: #### L 501.3620, L500.4050, L506.1001, L3600.5100, L3890.6301, L501.9520, L501.9910, L100.0100, L501.4021 #### [facility] [address] [place], [address] RDW SD 45.0 fl High 35.1-43.9 [facility] Comment on above: Performed By: #### L 501.3620, L500.4050, L506.1001, L3600.5100, L3890.6301, L501.9520, L501.9910, L100.0100, L501.4021 #### [facility] [address] [place], [address] WBC (Bld) [#/Vol] 5.0 10*3/uL Normal 4.4-11.0 [facility] Comment on above: Performed By: #### L 501.3620, L500.4050, L506.1001, L3600.5100, L3890.6301, L501.9520, L501.9910, L100.0100, L501.4021 #### [facility] [address] [place], [address] CPK Total, Creatine Kinaseon 07-17-2024 CPK TOTAL 98 U/L Normal 24-195 [facility] Comment on above: Performed By: #### L 501.3620, L500.4050, L506.1001, L3600.5100, L3890.6301, L501.9520, L501.9910, L100.0100, L501.4021 #### [facility] [address] [place], [address] Carbon dioxide, total [Moles /volume] in Central venous bloodOrdered By: Jermaine Orellana on 07-17-2024 CO2 [Moles/Vol] 20.0 mmol/L Low 21.0-32.0 [facility] Chloride assayOrdered By: Daniel Orellana on 07-17-2024 Chloride [Moles/Vol] 105 mmol/L 98-[address] [facility] Comprehensive Metabolic Prof ilon 07-17-2024 Albumin [Mass/Vol] 4.0 g/dL Normal 3.4-4.8 [facility] Comment on above: Performed By: #### L 501.3620, L500.4050, L506.1001, L3600.5100, L3890.6301, L501.9520, L501.9910, L100.0100, L501.4021 ####[facility] [address] [place], [address] Albumin/Globulin [Mass ratio] 1.5 {ratio} Normal 0.9-2.4 [facility] Comment on above: Performed By: #### L 501.3620, L500.4050, L506.1001, L3600.5100, L3890.6301, L501.9520, L501.9910, L100.0100, L501.4021 ####[facility] [address] [place], [address] ALK PHOS 73 U/L Normal 40-129 [facility] Comment on above: Performed By: #### L 501.3620, L500.4050, L506.1001, L3600.5100, L3890.6301, L501.9520, L501.9910, L100.0100, L501.4021 ####[facility] [address] [place], [address] ALT [Catalytic activity/Vol] 18 U/L Normal <=46 [facility] Comment on above: Performed By: #### L 501.3620, L500.4050, L506.1001, L3600.5100, L3890.6301, L501.9520, L501.9910, L100.0100, L501.4021 ####[facility] [address] [place], [place], [id number] AST [Catalytic activity/Vol] 26 U/L Normal <=37 [facility] Comment on above: Result Comment: Hemo lysis present, Results??could be affected. ?? Performed By: #### L 501.3620, L500.4050, L506.1001, L3600.5100, L3890.6301, L501.9520, L501.9910, L100.0100, L501.4021 ####[facility] [address] [place], [place], [id number] Bilirubin [Mass/Vol] 0.28 mg/dL Normal 0.00-1.[address] [facility] Comment on above: Performed By: #### L 501.3620, L500.4050, L506.1001, L3600.5100, L3890.6301, L501.9520, L501.9910, L100.0100, L501.4021 ####[facility] [address] [place], [place], [id number] BUN/CRE 17.2 RATIO Normal 10-20 [facility] Comment on above: Performed By: #### L 501.3620, L500.4050, L506.1001, L3600.5100, L3890.6301, L501.9520, L501.9910, L100.0100, L501.4021 ####[facility] [address] [place], [address] Calcium [Mass/Vol] 8.7 mg/dL Normal 7.6-11.0 [facility] Comment on above: Performed By: #### L 501.3620, L500.4050, L506.1001, L3600.5100, L3890.6301, L501.9520, L501.9910, L100.0100, L501.4021 ####[facility] [address] [place], [address] Chloride [Moles/Vol] 105 mmol/L Normal 98-[address] [facility] Comment on above: Performed By: #### L 501.3620, L500.4050, L506.1001, L3600.5100, L3890.6301, L501.9520, L501.9910, L100.0100, L501.4021 ####[facility] [address] [place], [address] CO2 [Moles/Vol] 20.0 mmol/L Low 21.0-32.0 [facility] Comment on above: Performed By: #### L 501.3620, L500.4050, L506.1001, L3600.5100, L3890.6301, L501.9520, L501.9910, L100.0100, L501.4021 ####[facility] [address] [place], [address] Creatinine [Mass/Vol] 1.34 mg/dL High 0.70-1.20 [facility] Comment on above: Performed By: #### L 501.3620, L500.4050, L506.1001, L3600.5100, L3890.6301, L501.9520, L501.9910, L100.0100, L501.4021 ####[facility] [address] [place], [address] GAP 15 Normal 5-15 [facility] Comment on above: Performed By: #### L 501.3620, L500.4050, L506.1001, L3600.5100, L3890.6301, L501.9520, L501.9910, L100.0100, L501.4021 ####[facility] [address] [place], [address] GFR/1.73 sq M.predicted among non-blacks MDRD (S/P/Bld) [Vol rate/Area] 58 mL/min/{1.73_m2} Low >60 [facility] Comment on above: Result Comment: mL/m in/1.73m2 CKD-EPI Creatinine Equation (2020) Performed By: #### L 501.3620, L500.4050, L506.1001, L3600.5100, L3890.6301, L501.9520, L501.9910, L100.0100, L501.4021 ####[facility] [address] [place], [address] Globulin (S) [Mass/Vol] 2.6 g/dL Normal 2.2-4.2 [facility] Comment on above: Performed By: #### L 501.3620, L500.4050, L506.1001, L3600.5100, L3890.6301, L501.9520, L501.9910, L100.0100, L501.4021 ####[facility] [address] [place], [address] Glucose [Mass/Vol] 98 mg/dL Normal 70-99 [facility] Comment on above: Performed By: #### L 501.3620, L500.4050, L506.1001, L3600.5100, L3890.6301, L501.9520, L501.9910, L100.0100, L501.4021 ####[facility] [address] [place], [address] Potassium [Moles/Vol] 4.2 mmol/L Normal 3.3-5.1 [facility] Comment on above: Result Comment: Hemo lysis present, Results??could be affected. ?? Performed By: #### L 501.3620, L500.4050, L506.1001, L3600.5100, L3890.6301, L501.9520, L501.9910, L100.0100, L501.4021 ####[facility] [address] [place], [address] Sodium [Moles/Vol] 140 mmol/L Normal 133-145 [facility] Comment on above: Performed By: #### L 501.3620, L500.4050, L506.1001, L3600.5100, L3890.6301, L501.9520, L501.9910, L100.0100, L501.4021 ####[facility] [address] [place], [address] T PROT 6.6 g/dL Normal 5.9-8.4 [facility] Comment on above: Performed By: #### L 501.3620, L500.4050, L506.1001, L3600.5100, L3890.6301, L501.9520, L501.9910, L100.0100, L501.4021 ####[facility] [address] [place], [address] Urea nitrogen [Mass/Vol] 23 mg/dL High 4-19 [facility] Comment on above: Performed By: #### L 501.3620, L500.4050, L506.1001, L3600.5100, L3890.6301, L501.9520, L501.9910, L100.0100, L501.4021 ####[facility] [address] [place], [address] Eosinophil percentageOrdered By: Jermaine Orellana on 07-17-2024 Eosinophils/100 WBC (Bld) 3.6 % 0-5 [facility] Erythrocyte distribution wid th ratioOrdered By: Jermaine Orellana on 07-17-2024 Erythrocyte distribution width (RBC) [Ratio] 12.5 % 11.6-14.6 [facility] Erythrocyte distribution wid th standard deviationOrdered By: Jermaine Orellana on 07-17-2024 Erythrocyte distribution width (RBC) [Ratio] 45.0 fl High 35.1-43.9 [facility] Glomerular filtration rate ( GFR) estimation/1.73 sq m using serum, plasma, or whole bOrdered By: Jermaine Orellana on 07-17-2024 GFR/1.73 sq M.predicted among non-blacks MDRD (S/P/Bld) [Vol rate/Area] 58 mL/min/{1.73_m2} Low >60 [facility] Comment on above: mL/min/1.73m2 CKD-EP I Creatinine Equation (2020) Hematocrit Auto (Bld) [Volum e fraction]Ordered By: Jermaine Orellana on 07-17-2024 Hematocrit (Bld) [Volume fraction] 43.8 % 40-54 [facility] Hemoglobin measurementOrdere d By: Jermaine Orellana on 07-17-2024 Hemoglobin (Bld) [Mass/Vol] 14.7 g/dL 13.0-16.5 [facility] Hepatitis C Antibodyon 07-17 Hepatitis C Ab Non-Reactive Normal Nonreactive [facility] Comment on above: Result Comment: Reac tive: Presumptive evidence of antibodies to HCV. Follow CDC recommendations for supplemental testing. Non-Reactive: Antibodies to HCV were not detected; does not exclude the possibility of exposure to HCV Reactive Results are presumptive evidence of antibodies to HCV. Follow CDC recommendations for supplemental testing. Order confirmation testing: HCV Quant by PCR testing - HCVPCR #[id number] Non Reactive: < 0.8 Equivocal: >/= 0.8 to < 1.0 Reactive: >/= 1.0 The CDC requires that a reactive/equivocal HCV antibody result be sent out for confirmation. HCV Quant by PCR testing. Performed By: #### L 501.3620, L500.4050, L506.1001, L3600.5100, L3890.6301, L501.9520, L501.9910, L100.0100, L501.4021 #### [facility] [address] [place], [address] Immature granulocytes/100 WB C Auto (Bld)Ordered By: Jermaine Orellana on 07-17-2024 Immature granulocytes/100 WBC (Bld) 1.000 % High 0.0-0.9 [facility] Comment on above: IG% - Immature Granu locytes (promyelocytes, myelocytes and metamyelocytes) > 1% indicates that a LEFT SHIFT is Present. L501.4021on 07-17-2024 Trop T High Sen 11 ng/L Normal <=22 [facility] Comment on above: Performed By: #### L 501.3620, L500.4050, L506.1001, L3600.5100, L3890.6301, L501.9520, L501.9910, L100.0100, L501.4021 #### [facility] [address] [place], [place], [phone] Laboratory - Chemistry and C hemistry - challengeOrdered By: Jermaine Orellana on 07-17-2024 AST [Catalytic activity/Vol] 26 U/L <38 [facility] Comment on above: Hemolysis present, R esults could be affected. MCV (mean corpuscular volume ) determinationOrdered By: Jermaine Orellana on 07-17-2024 MCV (RBC) [Entitic vol] 96.7 fL High 80-94 [facility] Mean corpuscular hemoglobin (MCH) determinationOrdered By: Jermaine Orellana 07-17-2024 MCH (RBC) [Entitic mass] 32.5 pg High 27.0-32.0 [facility] Mean corpuscular hemoglobin concentration (MCHC) determinationOrdered By: Jermaine Orellana 07-17-2024 MCHC (RBC) [Mass/Vol] 33.6 g/dL 32-36 [facility] Mean platelet volume determi nationOrdered By: Jermaine Orellana 07-17-2024 Platelet mean volume (Bld) [Entitic vol] 12.9 fL High 6.2-12.0 [facility] Monocyte percentageOrdered B y: Jermaine Orellana on 07-17-2024 Monocytes/100 WBC (Bld) 15.2 % High 0-10 [facility] Neutrophil percentageOrdered By: Jermaine Orellana 07-17-2024 Neutrophils/100 WBC (Bld) 56.8 % 47-70 [facility] Nucleated red blood cell per centageOrdered By: Jermaine Orellana 07-17-2024 Nucleated RBC/100 WBC (Bld) [Ratio] 0 % 0-5 [facility] PSA,Total - Annual Screenon 07-17-2024 PSA,TOT SCREEN 1.91 ng/mL Normal 0.02-4.00 [facility] Comment on above: Result Comment: This test [...] L3600.5100, L3890.6301, L501.9520, L501.9910, L100.0100, L501.4021 #### [facility] [address] [place], [place], [id number] Platelet countOrdered By: Daniel Orellaan on 07-17-2024 Platelets (Bld) [#/Vol] 138 10*3/uL Low 150-450 [facility] Potassium measurement (mass/ volume)Ordered By: Jermaine Orellana on 07-17-2024 Potassium (Unsp spec) [Mass/Vol] 4.2 mmol/L 3.3-5.1 [facility] Comment on above: Hemolysis present, R esults could be affected. RBC Auto (Bld) [#/Vol]Ordere d By: Jermaine Orellana on 07-17-2024 RBC (Bld) [#/Vol] 4.53 10*6/uL Low 4.6-6.2 [facility] Serum creatinine measurement (mass/volume)Ordered By: Jermaine Orellana on 07-17-2024 Creatinine [Mass/Vol] 1.34 mg/dL High 0.70-1.20 [facility] Serum globulin measurementOr dered By: Jermaine Orellana on 07-17-2024 Globulin (S) [Mass/Vol] 2.6 g/dL 2.2-4.2 [facility] Serum glucose measurement (m ass/volume)Ordered By: Jermaine Orellana on 07-17-2024 Glucose [Mass/Vol] 98 mg/dL 70-99 [facility] Serum myoglobin measurementO rdered By: Jermaine Orellana on 07-17-2024 Myoglobin [Mass/Vol] 46 ng/mL 28-[address] [facility] Comment on above: Performed at: [address] [id number] Director: Dave Jain PhD, Phone: [phone] Serum or plasma alanine cueto otransferase (ALT) measurementOrdered By: Jermaine Orellana on 07-17-2024 ALT [Catalytic activity/Vol] 18 U/L <47 [facility] Serum or plasma albumin sekou urement (mass/volume)Ordered By: Jermaine Orellana on 07-17-2024 Albumin [Mass/Vol] 4.0 g/dL 3.4-4.8 [facility] Serum or plasma albumin/glob ulin mass ratioOrdered By: Jermaine Orellana 07-17-2024 Albumin/Globulin [Mass ratio] 1.5 {ratio} 0.9-2.4 [facility] Serum or plasma alkaline dave sphatase measurementOrdered By: Jermaine Orellana 07-17-2024 ALP [Catalytic activity/Vol] 73 U/L 40-129 [facility] Serum or plasma calcium sekou urement (mass/volume)Ordered By: Jermaine Orellana 07-17-2024 Calcium [Mass/Vol] 8.7 mg/dL 7.6-11.0 [facility] Serum or plasma creatine kin ase activityOrdered By: Jermaine Orellana 07-17-2024 CK [Catalytic activity/Vol] 98 U/L 24-195 [facility] Serum or plasma urea nitroge n measurement (mass/volume)Ordered By: Jermaine Orellana on 07-17-2024 Urea nitrogen [Mass/Vol] 23 mg/dL High 4-19 [facility] Sodium levelOrdered By: Jermaine Orellana 07-17-2024 Sodium [Moles/Vol] 140 mmol/L 133-145 [facility] TSH DL <= 0.005 mIU/L QnOrde red By: Jermaine Orellana on 07-17-2024 TSH Qn 2.750 uIU/mL 0.300-4.200 [facility] Thyroid Stim Hormone (TSH)on 07-17-2024 TSH 2.750 uIU/mL Normal 0.300-4.200 [facility] Comment on above: Performed By: #### L 501.3620, L500.4050, L506.1001, L3600.5100, L3890.6301, L501.9520, L501.9910, L100.0100, L501.4021 #### [facility] [address] [place], [place], [id number] Total proteinOrdered By: Jermaine Orellana on 07-17-2024 Protein [Mass/Vol] 6.6 g/dL 5.9-8.4 [facility] Troponin T.cardiac [Mass/vol ume] in Serum or Plasma by High sensitivity methodOrdered By: Jermaine Orellana on 07-17-2024 Troponin T.cardiac High sensitivity method [Mass/Vol] 11 ng/L <22 [facility] Vitamin D,25 Hydroxyon 07-17 Vitamin D 25-OH 29.3 ng/mL Low 30-100 [facility] Comment on above: Result Comment: [place] min D Status Deficiency: <20 ng/mL (50nmol/L) Insufficiency: 20-30 ng/mL (50-75 nmol/L) Sufficiency: 30-100 ng/mL (75-250 nmol/L) Toxicity: >100 ng/mL (>250 nmol/L) Performed By: #### L 501.3620, L500.4050, L506.1001, L3600.5100, L3890.6301, L501.9520, L501.9910, L100.0100, L501.4021 #### [facility] [address] [place], [place], [id number] White blood cell (WBC) count Ordered By: Jermaine Orellana on 07-17-2024 WBC (Bld) [#/Vol] 5.0 10*3/uL 4.4-11.0 [facility] Encounters Encounter Date Encounter Type Care Provider Facility Start: 08-22-2024 End: 08-22-[address] Jermaine Orellana MD Work Phone: -[facility] Services Start: 08-22-2024 End: 08-22-[address] Jermaine Orellana MD -Card[facility] Services Work Phone: Start: 08-21-2024 End: 08-22-2024 ambulatory Jermaine Orellana Facility:[facility] Start: 08-21-2024 Non-patient / Non-visit [facility]. Garber [facility] Start: 07-31-2024 End: 07-31-[address] Jermaine Orellana MD Work Phone: [facility] Work Phone: Start: 07-31-2024 End: 07-31-[address] Jermaine Orellana MD -Cardiovascular Services Work Phone: Start: 07-31-2024 End: 07-31-2024 ambulatory Jermaine Gurpreet Esteban Facility:[facility] Start: 07-17-2024 End: 07-17-[address] Jermaine Orellana MD Work Phone: [facility] Work Phone: Start: 07-17-2024 End: 07-17-[address] Jermaine Orellana MD -Laboratory Work Phone: Start: 07-17-2024 End: 07-17-2024 ambulatory Jermaine Orellana Facility:[facility] Start: 02-05-2018 Patient encounter procedure MARLY MORRIS [facility] Start: 01-31-2018 End: 01-31-2018 Patient encounter procedure Florinda Thornton [facility] Comment on above: medical records Procedures Date Procedure Procedure Detail Performing Clinician Start: 08-22-2024 Radionuclide imaging of perfusion of myocardium under exercise stress Dr. Jermaine Orellana MD Work Phone: Start: 07-17-2024 Hepatitis C antibody measurement Dr. [...] HCV Quant by PCR testing - HCVPCR #[id number] Non Reactive: < 0.8 Equivocal: >/= 0.8 [...] Date Payer Category Payer Self-pay 2024 Unknown [id number] Unknown [id number] Unknown [id number] [id number] [id number] Unknown [id number] [id number] [id number] Unknown [id number] 2.16.8 [id number] Unknown [id number] 2.16.8 [id number] Social History Date Type Detail Facility Tobacco smoking stat us [facility] Unknown if ever smoked [facility] on [facility] Tobacco smoking stat [facility] Unknown if ever smoked [facility] Work Phone: Start: 1955 Sex Assigned At Male [facility] Evaluation note Note Date & Type Note Facility Evaluation note No assessment information availa ble [facility] Work Phone: Reason for referral (narrative) Note Date & Type Note Facility Reason for referral (narrative) No reason for referral information available [facility] Work Phone: History of Present Illness * Florinad Thornton RN - 01/31/2018 11:21 AM EST Faxed and scan records from [facility] on 01/30 to [facility] in this encounter Summary Purpose Family History No Family History Records FoundNo Family History Records Found Advance Directives No Advanced Directives Records FoundNo Advanced Directives Records Found Chief Complaint and Reason for Visit Chief Complaint Admit Date ABDOMINAL AORTIC ANEURYSM, W/O RUPTURE, UNSPECIFIE July 31, 2024 8:44am Chief Complaint Admit Date ABDOMINAL AORTIC ANEURYSM, W/O RUPTURE, UNSPECIFIE July 31, 2024 8:44am SOB, CHEST PAIN UNSPECIFIED August 22 6:14am Additional Source Comments Reason for Visit (unrecogniz ed section and content) Reason Comments medical records (unrecognized sect ion and content) No Status Records FoundNo Status Records Found INFORMATION SOURCE (unrecogn ized section and content) DATE CREATED AUTHOR 02/07/2018 [facility] DATE CREATED AUTHOR AUTHOR'S ORGANIZ ATION 09/02/2024 [facility] Care Teams (unrecognized sec tion and content) [...] July 31, 2024 End: July 31, 2024 Team Status: Active Member Role/Relationship Status Dates Dr. Jermaine Orellana MD Primary Care Provider Active Team Status: Inactive Member Role/Relationship Status Dates Dr. Jermaine Orellana MD Primary Care Provider Active Start: July 17, 2024 End: July 17, 2024 Dr. Jermaine Orellana MD Attending Provider Active Start: July 17, 2024 End: July 17, 2024 Dr. Jermaine Orellana MD Referring Provider Active Start: July 17, 2024 End: July 17, 2024 Team Status: Inactive Member Role/Relationship Status Dates Dr. Jermaine Orellana MD Primary Care Provider Active Start: July 31, 2024 End: July 31, 2024 Dr. Jermaine Orellana MD Attending Provider Active Start: July 31, 2024 End: July 31, 2024 Dr. Jermaine Orellana MD Referring Provider Active Start: July 31, 2024 End: July 31, 2024 Team Status: Active Member Role/Relationship Status Dates Dr. Jermaine Orellana MD Primary Care Provider Active Start: August 21, 2024 Dr. Lucas Franco MD Attending Provider Active S tart: August 21, 2024 Team Status: Inactive Member Role/Relationship Status Dates Dr. Jermaine Orellana MD Primary Care Provider Active Start: August 22, 2024 End: August 22, 2024 Dr. Jermaine Orellana MD Attending Provider Active Start: August 22, 2024 End: August 22, 2024 Dr. Jermaine Orellana MD Referring Provider Active Start: August 22, 2024 End: August 22, 2024 Goals (unrecognized section and content) Goals may be documented in a n alternate sectionGoals may be documented in an alternate sectionGoals may be documented in an [...] BE BASED ON THE PRIMARY CLINICAL RECORDS. [facility] [employer] [facility]. provides no warranty or guarantee of the accuracy or completeness of information in this document.
[2025-01-16 22:31] LABS: Xtra Tube Kwok EXTRA TUBE
== END | disposition home or self-care (01) ==
LOC: POLAB3 14:28
PROVIDERS: PCP Family Medicine Geriatric Medicine; Visit Provider Family Medicine Geriatric Medicine
DX: E55.9 Vitamin D deficiency, unspecified (principal); E78.5 Hyperlipidemia, unspecified; I10 Essential (primary) hypertension
CPT/HCPCS: 36415; 80053; 82306; 84443; 85025